=== PATIENT | male | born 1940 | race Caucasian/White ===

== ENCOUNTER 2020-08-15 17:40 | Emergency (ER) | payer OTHER ==
--- OUTSIDE RECORDS SUMMARY | 2020-08-15 17:55 | XMS REPORT | Continuity of Care Document ---
:1940 Author Organization [facility] t Address [address] [place] [address] Dr. Montes De Oca [address] [place] [address] Care Team Providers Name Role Phone CECILE Primary Care Physician Unavailable Whitney AHN Attending Clinician Unavailable Mitzi DEL TORO Attending Clinician Cecile DEL TORO Attending Clinician CECILE Attending Clinician Unavailable Kae HENRY Attending Clinician Unavailable Francis DEL TORO, RJean Attending Clinician Jimy VEGA E Attending Clinician Unavailable Payers Payer Name Policy Policy Number Effective Expiration Source Type Date Date MEDICARE PART A AND B [id number] 2007 00:00:00 GENERIC [id number] 2018 00:00:00 MEDICAREMEDICARE PART [id number] 2007 Sunny Hinojosa AND 00:00:00 [facility] [id number] [place] [id number] 2017 [place] MANAGED 00:00:00 Gn[facility]ist [id number] Problems Condition Condition Condition Status Onset Resolution Last Treating Co mments Source Name Details Category Date Date Treatment Clinician Date Palpitatio Palpitatio Disease Active 2019-02 H puneet bagley n 2-29 Methodi 00:00: st 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 9: EK, SR 019: CT CHEST: IMPRESSIO N:1. Bladder wall thickenin g compatibl e with the known primary tumor with some perivesic al fat stranding that may represent tumor infiltrat ion.2. Scattered subcentim eter pulmonary nodules that are indetermi lisa and of uncertain clinical significa nce. Current Current Disease Active Overview: MD use of use of 10-02 Formattin Anderso antiplatel antiplatel 00:00: g of this n et et 00 note might be different from the original. On Plavix and aspirinLa st Assessmen t & Plan: Formattin g of this note might be different from the original. See above Type 2 Type 2 Disease Active Overview: diabetes diabetes 10-02 Formattin And erso mellitus mellitus 00:00: g of this n well well 00 note is controlled controlled different from the original. Lab Results Component Value Date POCA1C 6.7 (H) 9 Last Assessmen t & Plan: Formattin g of this note might be different from the original. Continue current diabetic medicatio nsDo not take any oral diabetic agents on the morning of surgery Swelling Swelling Disease Active Overview: MD of lower of lower 10-02 Formattin And erso leg leg 00:00: g of this n 00 note might be different from the original. Patient has denied any prior history of DVTBut somehow, patient's left leg is significa nt bigger than his right leg although his right leg is the dominant one.Last Assessmen t & Plan: Formattin g of this note might be different from the original. Left lower extremity Doppler study to rule out DVT today. Bladder Bladder Disease Active Overview: cancer cancer 8-16 Keltin Anderso 00:00: g of this n 00 note might be different from the original. Added automatic ally from request for surgery [id number] Mass of Mass of Disease Active Overview: urinary urinary 7-10 Keltin Adria so bladder bladder 00:00: g of this n 00 note might be different from the original. Added automatic ally from request for surgery [id number] CAD in CAD in Disease Active [place] knik knik 03-13 Methodi artery artery 00:00: st 00 Hypertensi Hypertensi Disease Active Overview : on on 02-11 Jackson Henry 00:00: g of this n 00 note is different from the original. Controled by medicatio nBP Readings from Last 3 Encounter s: 10/02/18 145/82 08/22/18 (!) 175/86 08/21/18 116/65 Last Assessmen t & Plan: Formattin g of this note might be different from the original. 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 After TURP Hyperlipid Hyperlipid Disease Active Overview : emia emia 02-11 Jackson Anderso 00:00: g of this n 00 note might be different from the original. 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 Due to service. 90%?disab led Stented Stented Disease Active Overview: coronary coronary Jackson And maddisono artery artery g of this n note might be different from the original. Had total 5 stent employed in 2011 - 3 LAD AND 2 RCALast cardiac stress test one week ago, negative for stress-in duced ischemiaC leared by local cardiolog ist for surgeryLa st Assessmen t & Plan: Formattin g of this note might be different from the original. Hold Plavix 1 week prior to surgeryCo ntinue aspirin 81 mg daily through surgeryCo ntinue atorvasta tin 40 mg nightly through surgery Allergies, Adverse Reactions, Alerts Allergy Allergy Status Severity Reaction(s) Onset Inactive Treating Comm ents Source Name Type Date Date Clinician Cruz Burdick Active [place] ty to 08-21 Methodi adverse 00:00: st reaction 00 s to drug Family History Family Member Diagnosis Comments Start Date Stop Date Source Natural brother -Thoracic or Lung MD Knott Natural father -Genitourinary (Bladder, MD Knott Kidney, Prostate, Testicle) Natural mother -Leukemia MD Carl bagley Natural sister -Pancreatic cancer MD Knott Social History Social Habit Start Date Stop Date Quantity Comments Source Cigarettes smoked 2020-04-13 2020-04-13 MD Michele sánchez current (pack per 00:00:00 00:00:00 day) - Reported Tobacco use and 2020-04-13 2020-04-13 Never used MD Tsang on exposure 00:00:00 00:00:00 Alcohol intake 2020-04-13 2020-04-13 Ex-drinker MD Carl bagley 00:00:00 00:00:00 (finding) Alcohol Comment 2018-08-22 2018-08-22 last month last MD Ashish nash 00:00:00 00:00:00 History of tobacco 1957 1968 Current smoker MD Knott use 00:00:00 00:00:00 Sex [birth year] MD Tsang on 00:00:00 00:00:00 Smoking Status Start Date Stop Date Source Former smoker 2020-04-13 00:00:00 2020-04-13 00:00:00 MD [place] son Never smoker [place] Methodis t Medications Ordered Filled Start Stop Current Ordering Indication Dosage Frequency Signature Comments Components Source Medication Medication Date Date Medication? Clinician (SIG) Name Name alogliptin Yes 6.25mg QD Take 6.25 [place] 6.25 mg 1-05 mg by Methodi tablet 14:52: mouth st 35 daily. isosorbide Yes 30mg QD Take 30 mg [place] mononitrate 1-05 by mouth Meth bebe (IMDUR) 30 14:51: daily. st MG 24 hr 54 tablet metoprolol Yes 50mg Q.5D Take 1 [place] tartrate 1-05 tablet (50 Metho di (LOPRESSOR) 00:00: mg total) s t 50 mg 00 by mouth 2 tablet (two) times a day. metoprolol 2019-02 No 50mg Q.5D Take 50 mg [place] tartrate 2-29 12-29 by mouth 2 Meth bebe (LOPRESSOR) 10:48: 00:00 (two) st 50 mg 22 :00 times a tablet day. losartan 2019-02 No 100mg QD Take 100 [place] (COZAAR) 2-29 12-29 mg by Methodi 100 MG 10:47: 00:[address] tablet 50 :00 daily. Take 1/2 tablet by mouth daily aspirin 2019-02 Yes 81mg QD Take 81 mg [place] (ECOTRIN) 2-29 by mouth Method i 81 MG 09:57: daily. st enteric 57 coated tablet atorvastati 2019-02 Yes 40mg QD Take 40 mg [place] n (LIPITOR) 2-29 by mouth Meth bebe 40 MG 09:57: daily. st tablet 57 clopidogrel 2019-02 Yes 75mg QD Take 75 mg [place] (PLAVIX) 75 2-29 by mouth Meth bebe mg tablet 09:57: daily. st 57 finasteride 2019-02 Yes 5mg QD Take 5 mg [place] (PROSCAR) 5 -29 by mouth Meth bebe mg tablet 09:57: daily. st 57 gabapentin 2019-02 Yes 300mg Q.[id number] Take 300 [place] (NEURONTIN) 2-29 [id number] mg by M ethodi 300 mg 09:57: 3D mouth 3 st capsule 57 (three) times a day. glipiZIDE 2019-02 Yes 10mg Q.5D Take 10 mg [place] (GLUCOTROL) 2-29 by mouth 2 Me thodi 10 MG 09:57: (two) st tablet 57 times a day before meals. metFORMIN 2019-02 Yes 1000mg Q.5D Take 1,000 [place] (GLUCOPHAGE 2-29 mg by Methodi ) 1,000 mg 09:57: mouth 2 st tablet 57 (two) times a day with meals. nitroglycer 2019-[address] 0.4 [place] in 2-29 mg under Methodi (NITROSTAT) 09:57: the tongue st 0.4 MG SL 57 every 5 tablet (five) minutes as needed for chest pain. sitaGLIPtin 2019-02 Yes 100mg QD Take 100 [place] (JANUVIA) 2-29 mg by Methodi 100 MG 09:57: mouth st tablet 57 daily. metoprolol 2019-02 100mg Q.5D Take 1 [place] tartrate 2-29 01-05 tablet Methodi (LOPRESSOR) 00:00: 00:00 ([address] 100 mg 00 :00 total) by tablet mouth 2 (two) times a day. metFORMIN 2020-0 Yes 1000mg Take 1,000 MD (GLUCOPHAGE 9-03 mg by Anderso ) 1000 mg 14:32: mouth n tablet 45 twice daily. gabapentin 2020-0 Yes 300mg Take 300 MD (NEURONTIN) 5-07 mg by Anderso 300 mg 17:16: mouth at n capsule 46 bedtime. glipiZIDE 2020-0 Yes 10mg Take 10 mg MD (GLUCOTROL) 5-07 by mouth Michele rso 10 mg 17:16: twice n tablet 46 daily. atorvastati 2020-0 Yes 40mg Take 40 mg MD n (LIPITOR) 5-07 by mouth Michele rso 40 mg 17:16: at n tablet 46 bedtime. aspirin 81 2020-0 Yes 81mg Take 81 mg M D mg EC 5-07 by mouth Anderso tablet 17:16: daily. n 46 metoprolol 2020-0 Yes 25mg Take 25 mg M D tartrate 5-07 by mouth Anderso (LOPRESSOR) 17:16: twice n 50 mg 46 daily. tablet nitroglycer 2020-[address] 0.4 M D in 5-07 mg under Anderso (NITROSTAT) 17:16: the tongue n 0.[address] 46 as needed. tablet losartan 2020-0 Yes 25mg Take 25 mg MD (COZAAR) 5-07 by mouth. Sharan o 100 mg 17:16: n tablet 46 alogliptin 2020-0 Yes 1{tbl} Take 1 MD 12.5 mg tab 5-07 tablet by And erso 17:16: mouth n 46 daily. isosorbide 2020-0 Yes 30mg Take 30 mg M D mononitrate 5-07 by mouth Michele rso (IMDUR) 30 17:16: daily. n mg 24 hr 46 tablet multivitami 2020-0 Yes 1{tbl} Take 1 MD n 5-07 tablet by Anderso (multivitam 17:16: mouth n in) tablet 46 daily. 2020-0 Yes 1{tbl} Take 1 MD no122/iron/ 5-07 tablet by And erso folic acid 17:16: mouth n ( 46 daily. MULTI ORAL) fish Yes 2g Take 2 g MD oil-omega-3 5-07 by mouth Michele rso fatty acids 17:16: daily. n 300-1,000 46 mg capsule multivitami 0 Yes 1{tbl} Take 1 MD n 5-07 tablet by Anderso (THERAGRAN) 17:16: mouth n tablet 46 daily. clopidogrel Yes Recovery 75mg Take 1 MD (PLAVIX) 75 9-13 following tablet (75 Anderso mg tablet 00:00: surgery mg) by n 00 mouth daily. polyethylen Yes Recovery 17g Pour 17 MD e glycol 8-30 following gram Sharan o (GLYCOLAX) 00:00: surgery (about 1 n 17 00 heaping gram/dose tablespoon powder ) of powder up to the indicated james on the cap of bottle. Dissolve and stir in any 4 to 8 ounces of beverage and drink as instructed by mouth daily. docusate Yes Bladder 100mg Take 1 MD sodium 8-29 cancer capsule Anderso (COLACE) 00:00: (100 mg) n 100 mg 00 by mouth capsule twice daily. Vital Signs Vital Name Observation Time Observation Value Comments Source Systolic blood 2020-04-13 21:13:24 175 mm[Hg] pressure Diastolic blood 2020-04-13 21:13:24 82 mm[Hg] MD Kelsie moellerson pressure Heart rate 2020-04-13 21:13:24 58 /min MD [place] son Respiratory rate 2020-04-13 21:13:24 20 /min MD Ashish nash Oxygen saturation in 2020-04-13 21:13:24 100 /min MD Knott Arterial blood by Pulse oximetry Systolic blood 2020-02-09 09:57:00 132 mm[Hg] Vern bagley Gnosticist pressure Diastolic blood 2020-02-09 09:57:00 60 mm[Hg] Adriana gracia [facility] pressure Heart rate 2020-02-09 09:57:00 67 /min Prashant Jc Body height 2020-02-09 09:57:00 180.3 cm Prashant Jc Body weight 2020-02-09 09:57:00 90.266 kg Prashant Jc BMI 2020-02-09 09:57:00 27.75 kg/m2 [facility] Procedures Procedure Date / Time Performed Performing Clinician [facility] CHEST ABDOMEN PELVIS W WO 2020-04-13 21:03:12 Bay Huber MD CONTRAST UROGRAM COMPLETE BLOOD COUNT W/ 2020-04-13 17:21:00 Bay Huber MD COMPREHENSIVE METABOLIC PANEL 2020-04-13 17:21:00 Bay Huber MD PROSTATE SPECIFIC ANTIGEN 2020-04-13 17:21:00 Bay Huber MD GLUCOSE LEVEL 2020-04-13 17:21:00 Bay Huber MD BLOOD UREA NITROGEN 2020-04-13 17:21:00 Bay Huber MD Adria son ELECTROLYTE PANEL 2020-04-13 17:21:00 Bay Huber MD SERUM CREATININE 2020-04-13 17:21:00 Bay Huber MD .GLOMERULAR FILTRATION RATE 2020-04-13 17:21:00 Bay Huber MD CALCIUM LEVEL TOTAL 2020-04-13 17:21:00 Bay Huber MD Adria son ALBUMIN LEVEL 2020-04-13 17:21:00 Bay Huber MD ALKALINE PHOSPHATASE 2020-04-13 17:21:00 Bay Huber MD rson ALANINE AMINOTRANSFERASE 2020-04-13 17:21:00 Bya Huber MD ASPARTATE AMINOTRANSFERASE 2020-04-13 17:21:00 Bay Huber TOTAL PROTEIN 2020-04-13 17:21:00 Bay Huber MD FRACTIONATED BILIRUBIN 2020-04-13 17:21:[address] CHEST ABDOMEN PELVIS W WO 2019-10-15 16:37:00 Bay Huber MD CONTRAST UROGRAM POC CREATININE 2019-10-15 14:40:00 Bay Huber MD ALBUMIN LEVEL 2019-10-15 14:02:00 Bay Huber MD ALKALINE PHOSPHATASE 2019-10-15 14:02:00 Bay Huber MD rson ALANINE AMINOTRANSFERASE 2019-10-15 14:02:00 Bay Huber MD ASPARTATE AMINOTRANSFERASE 2019-10-15 14:02:00 Bay Huber TOTAL PROTEIN 2019-10-15 14:02:00 Bay Huber MD FRACTIONATED BILIRUBIN 2019-10-15 14:02:00 Bay Huber MD derson VITAMIN B12 LEVEL 2019-10-15 14:02:00 Bay Huber MD COMPLETE BLOOD COUNT W/ 2019-10-15 14:02:00 Bay Huber MD nderson DIFFERENTIAL COMPREHENSIVE METABOLIC PANEL 2019-10-15 14:02:00 Bay Huber MD Results CBC 2019-10-15 14:02:00 Bay Huber MD MANUAL DIFFERENTIAL 2019-10-15 14:02:00 Bay Hub[facility] GLUCOSE LEVEL 2019-10-15 14:02:00 Bay Huber MD BLOOD UREA NITROGEN 2019-10-15 14:02:00 Bay Huber MD [facility] ELECTROLYTE PANEL 2019-10-15 14:02:00 Bay Huber MD SERUM CREATININE 2019-10-15 14:02:00 Bay Huber MD .GLOMERULAR FILTRATION RATE 2019-10-15 14:02:00 Bay Huber MD CALCIUM LEVEL TOTAL 2019-10-15 14:02:00 Bay Huber MD [facility] Plan of Care Planned Activity Planned Date Details Comments Source Future Scheduled 2020-09-11 INFLUENZA VACCINE [place] [facility] Test 00:00:00 [code = INFLUENZA VACCINE] Future Scheduled 1992 SHINGLES VACCINES (#1) [place] [facility] Test 00:00:00 [code = SHINGLES VACCINES (#1)] Future Scheduled 1960 Hepatitis C screening [place] [facility] Test 00:00:00 (procedure) [code = 402618053] Future Scheduled 1954 COVID-19 VACCINE (1) [place] [facility] Test 00:00:00 [code = COVID-19 VACCINE (1)] Future Scheduled 1952 DIABETES: RETINAL EYE [place] [facility] Test 00:00:00 EXAM [code = DIABETES: RETINAL EYE EXAM] Future Scheduled 1952 DIABETIC FOOT EXAM [place] [facility] Test 00:00:00 [code = DIABETIC FOOT EXAM] Future Scheduled 1950 URINE MICROALBUMIN [place] [facility] Test 00:00:00 [code = URINE MICROALBUMIN] Future Scheduled 1948 65+ PNEUMOCOCCAL [place] [facility] Test 00:00:00 VACCINE (1 of 2 - PPSV23) [code = 65+ PNEUMOCOCCAL VACCINE (1 of 2 - PPSV23)] Encounters Start End Encounter Admission Attending Care Care Encounter Source Date/Time Date/Time Type Type Clinicians Facility Department ID 2019-09-24 Outpatient JIMY KRISTIAN TOWNSEND [id number] 10:06:19 JEREMY Johnserso n 2020-04-14 2020-04-14 Outpatient ROMI HUBER KRISTIAN MDA [id number] 15:57:52 17:04:36 BAY Sharan o n 2020-04-13 2020-04-13 Outpatient ROMI HUBER KRISTIAN MDA [id number] 11:00:00 23:59:00 BAY Sharan o n 2020-04-13 2020-04-13 Outpatient OTF KRISTIAN MDA [id number] 11:29:48 11:29:48 BAY Sharan o n 2020-02-09 2020-02-09 Outpatient [facility] [id number] [address] [place] [address] 00:00:00 00:00:00 KRIS [address] 2019-10-15 2019-10-15 Outpatient [facility] KRISTIAN MDA [id number] 08:20:45 23:59:00 BAY Sharan o n 2019-10-15 2019-10-15 Outpatient [facility] KRISTIAN MDA [id number] MD 16:00:39 16:00:39 BAY Sharan o n 2019-10-15 2019-10-15 Outpatient [facility] KRISTIAN MDA [id number] 09:12:04 09:12:04 BAY Sharan o n 2019-10-15 2019-10-15 Outpatient [facility] KRISTIAN MDA [id number] MD 00:00:00 00:00:00 BAY Sharan o n 2019-06-18 2019-06-18 Outpatient [facility] KRISTIAN MDA [id number] MD 06:40:47 06:40:47 BAY Sharan o n Results Test Description Test Time Test Comments Results Result [facility] e Comments CT Chest Abdomen 1. No evidence of MD Knott Pelvis with and 3 recurrent or without Contrast 22:05:01 metastatic disease in Urogram the chest, abdomen or pelvis. Tiny pulmonary nodules are present which are amenable to follow-up.Interface, Radiology Results In - 04/13/2020 4:07 PM CST FULL RESULT:EXAMINATION: CT CHEST ABDOMEN PELVIS W WO CONTRAST UROGRAM, 04/13/2020 3:03 PMCLINICAL HISTORY: Bladder cancerINDICATION: History of bladder cancerCOMPARISON: 10/15/2019TECHNIQUE: Axial images were performed both pre and post intravenous contrast through the abdomen and pelvis and post intravenous contrast through the thorax. No oral contrast was administered. Coronal and sagittal reconstructions were performed. FINDINGS: CHEST: No axillary or supraclavicular lymphadenopathy is seen. The mediastinum demonstrates sclerosis but no suspicious masses or adenopathy. There are no pleural effusions.The tracheobronchial tree is clear with no endobronchial lesions. The pulmonary parenchyma demonstrates a 3 mm nodule in the right upper lobe on series 306, image 51 that is likely within a bronchiole and represents some mucus.A stable 5 mm nodule is seen in the lingula on image 69. There is a 4 mm nodule in the right middle lobe abutting the oblique and minor fissures on image 70, slightly more pronounced than on previous. A stable 5 mm nodule is seen in the left lower lobe on image 91. Other scattered punctate nodules are seen. Areas of atelectasis or fibrosis are noted. ABDOMEN/PELVIS:The liver is unremarkable. The portal vein is patent. The gallbladder and biliary tree are within normal limits.The spleen, pancreas, and adrenal glands are unremarkable.A stable 2.5 cm cyst is seen in the right kidney. No suspicious renal masses are noted. There is no hydronephrosis, hydroureter or ureteric filling defect identified. An ileal conduit is present and appears unremarkable.Postsurg ical changes are seen related to hysterectomy and cystectomy. No evidence of local recurrence is seen.No dilated loops of large or small bowel are seen to suggest obstruction. Diverticulosis is seen without evidence of diverticulitis. The aorta is normal in caliber. Atherosclerosis is seen. No suspicious abdominal or pelvic lymphadenopathy is noted.Bone windows demonstrate degenerative changes.IMPRESSION:1. No evidence of recurrent or metastatic disease in the chest, abdomen or pelvis. Tiny pulmonary nodules are present which are amenable to follow-up. PSA 2020-04-13 18:09:50 Test Item Value Reference Range Interpretation Comme nts PSA (test code = 6743) <0.1 0.0-4.0 Resul ts greater than 4519 ng/mL may not be reli able due to matrix effect with ext ended dilution as it exceeds the metal fitter's recommended mullins it. Caution should be exercised wh en interpreting such values and done in conjunction wit h clinical context.Testing Performed at [facility] Lab Sports Management Internship [facility], [address] [place] [address], [address], [place] [address] PSA Indication (test code = Diagnostic 9395) MD KnottFractionated [id number] 17:59:34 Test Item Value Reference Range Interpretation Comments Bili Total (test 0.6 mg/dL See_Comment Indocyanine Green (ICG) code = 5096) may cause false ly elevated biliru bin results. Total and direct bilirubin must not be measured from s amples containing indo cyanine green. False el evation of total bilirubin can be seen in patient s with IgG concentrations above 28 g/L.Testing Per formed at [facility] Lab Ambulat ory [facility], [address] [place] [address], [address], [place] [address] [Automat ed message] The sy stem which generated this result transmitted ref erence range: <=1.2. T he reference range was not used to interpr et this result as normal/abnormal . Bili Direct (test 0.2 mg/dL See_Comment Indocyanin e Green (ICG) code = 5094) may cause false ly elevated biliru bin results. Total and direct bilirubin must not be measured from s amples containing indo cyanine green. Testing Performed at [facility] Lab Ambu latory [facility], [address] [place] [address], [address], [place] [address] [Auto mated message] The sy stem which generated this result transmitted ref erence range: <=0.3. T he reference range was not used to interpr et this result as normal/abnormal . Bili Indirect (test 0.4 mg/dL 0.0-0.9 Testing Performed at [facility] code = 5095) Lab [facility], [address] [place] [address] [address]vd, [address], [place] [address] MD KnottGlomerular Filtration [id number] 17:59:33 Test Item Value Reference Range Interpretation Comments eGFR-AA (test code 76 See_Comment Normal eG FR >= 60 mL/min/1.73 = 8062) m2 Note: The eG FR is calculated usin g the CKD-EPI equation. The e GFR declines with age. eGFR <60 mL/min/1.73 m2 is considered as "decreased". This equation should only be used for patients 18 and older. According to th e National Kidney Foundati on's Kidney Disease Outcome Quality Initiative (KDO QI) classification and 2012 Kidney Disease Improving Global Outcomes (KDIGO) Clinical Practi ce Guideline, the stage of CK D should be categorized bas ed on estimated GFR. Stage Description GFR mL/min/1.73 m21 Normal or high GFR >=902 Mildly decrease d GFR 60-893a M ildly to moderately decr eased GFR 45-593b Moderat grayson to severely decrea sed GFR 30-444 Severely decreased GFR 15-295 Kid kristopher failure <15 Testing Performed at [facility], [address], [address], [place], [place] [address] [Automated message] The Jiberish stem which generated this result transmitted ref erence range: >=60 mL/min/1.7 3 sq. m. The reference range was not used to interpret is result as normal/abnormal . eGFR-PURVI (test code 66 See_Comment Normal e GFR >= 60 mL/min/1.73 = 8063) m2 Note: The eG FR is calculated usin g the CKD-EPI equation. The e GFR declines with age. eGFR <60 mL/min/1.73 m2 is considered as "decreased". This equation should only be used for patients 18 and older. According to th e National Kidney Foundati on's Kidney Disease Outcome Quality Initiative (KDO QI) classification and 2012 Kidney Disease Improving Global Outcomes (KDIGO) Clinical Practi ce Guideline, the stage of CK D should be categorized bas ed on estimated GFR. Stage Description GFR mL/min/1.73 m21 Normal or high GFR >=902 Mildly decrease d GFR 60-893a M ildly to moderately decr eased GFR 45-593b Moderat grayson to severely decrea sed GFR 30-444 Severely decreased GFR 15-295 Kid kristopher failure <15 Testing Performed at [facility], [address], [place], [place] [address] [Automated message] The sy stem which generated this result transmitted ref erence range: >=60 mL/min/1.7 3 sq. m. The reference range was not used to interpret th is result as normal/abnormal . MD KnottTotal [id number] 17:59:32 Test Item Value Reference Range Interpretation Comments Total Protein (test 7.9 g/dL 6.4-8.3 Testing Performed at [facility] code = 7649) Lab [facility]ship [facility], [address], [address], [place] [address] MD KnottCalcium [id number] 17:59:31 Test Item Value Reference Range Interpretation Comments Calcium Lvl (test 10.0 mg/dL 8.4-10.2 Testing Pe rformed at code = 5258) [facility] Lab Ambulat [facility], [address], [address], [place] [address] MD KnottAlkaline [id number] 17:59:30 Test Item Value Reference Range Interpretation Comments Alk Phos (test code = 77 U/L 40-129 Testin g Performed at [facility] 4761) Lab [facility], [address], [address], [place] [address] MD KnottAlbumin [id number] 17:59:29 Test Item Value Reference Range Interpretation Comments Albumin Lvl (test code 4.8 See_Comment Testi ng Performed at [facility] = 4405) [facility], [address], [address], [place] [address] [Automated mess age] The system which ge nerated this result tra nsmitted reference range : 3.5 - 5.2 gm/dL. The refe rence range was not used to interpret this result as normal/abnormal . MD KnottAspartate [id number] 17:59:28 Test Item Value Reference Range Interpretation Comments AST (test code = 33 U/L See_Comment Testing Per formed at [facility] 473) Lab [facility], [address], [address], [place] [address] [Automated mess age] The system which ge nerated this result transmit lai reference range : <=40. The reference range was not used to interpr et this result as devonte l/abnormal. MD [id number] 17:59:27 Test Item Value Reference Range Interpretation Comments ALT (test code = 35 U/L See_Comment Testing Per formed at [facility] 4702) Lab [facility], [address], [address], [place] [address] [Automated mess age] The system which ge nerated this result transmit lai reference range : <=41. The reference range was not used to interpr et this result as devonte l/abnormal. MD KnottElectrolyte [id number] 17:59:26 Test Item Value Reference Range Interpretation Comments Sodium Lvl (test code = 139 See_Comment Test ing Performed at [facility] 7389) Lab [facility], [address], [address], [place] [address] [Automated mess age] The system which ge nerated this result tra nsmitted reference range : 136 - 145 mEq/L. The reference range was not u sed to interpret this result as normal/abnormal . Potassium Lvl (test 4.5 See_Comment Testing Performed at [facility] code = 6854) Lab [facility], [address], [address], [place] [address] [Automated mess age] The system which ge nerated this result tra nsmitted reference range : 3.5 - 5.1 mEq/L. The reference range was not u sed to interpret this result as normal/abnormal . Chloride (test code = 102 See_Comment Testin g Performed at [facility] 7938) Lab [facility], [address], [place] [address] [Automated mess age] The system which ge nerated this result tra nsmitted reference range : 98 - 107 mEq/L. The refe rence range was not u sed to interpret this result as normal/abnormal . CO2 (test code = 5227) 25 See_Comment Testi ng Performed at [facility] Lab [facility], [address], [address], [place] [address] [Automated mess age] The system which ge nerated this result tra nsmitted reference range : 22 - 29 mEq/L. The refe rence range was not u sed to interpret this result as normal/abnormal . Anion Gap (test code = 12 See_Comment Testi ng Performed at [facility] 9325) [facility], [address] [place], [place] [address], [address], [place] [address] [Automated mess age] The system which ge nerated this result tra nsmitted reference range : 4 - 14 mEq/L. The refe rence range was not u sed to interpret this result as normal/abnormal . MD Knott.Serum [id number] 17:59:25 Test Item Value Reference Range Interpretation Comments Creatinine (test code 1.08 mg/dL 0.67-1.17 Testin g Performed at = 5399) [facility] Lab Ambulat ory [facility], [address], [address], [place] [address] MD [id number] 17:59:24 Test Item Value Reference Range Interpretation Comments BUN (test code = 15 mg/dL 6-23 Testing Per formed at [facility] 5055) Lab [facility], [address] [facility], [address], [place] [address] MD KnottGlucose [id number] 17:59:23 Test Item Value Reference Range Interpretation Comments Glucose Level (test code 139 mg/dL 70-99 H Eff ective 09/07/15, = 5699) the glucose reference inter vals have been updat ed based on [place] Diabetes Associ ation guidelines (Standards of Medical Care in Diabetes 2016. Diabetes Care 2 016; 39: S13-S22).Fa sting blood glucose:Normal: 70 99 mg/dLImpaire d fasting glucose (increased risk for diabetes or pre-diabetes): 100 125 mg/dLDiabet es mellitus: >/=1 26 mg/dL Random bl ood glucose:Normal: 70 199 mg/dLNote: Random glucose >100 mg/dL is associ ated with increased risk for diabetes Te sting Performed at [facility] Lab [facility], [address], [place], [place] [address] Lab Interpretation (test Abnormal code = 22555-8) MD KnottCompletwhitney Blood Count w/o [id number] 17:49:20 Test Item Value Reference Range Interpretation Comments WBC (test code = 8034) 9.0 K/uL 4.0-11.0 RBC (test code = 6932) 4.72 See_Comment [Aut omated message] The system [employer] generated this result transmitted ref erence range: 4.50 - 6 .00 M/uL. The refer ence range was not u sed to interpret this result as normal/abnor mal. Hgb (test code = 5898) 15.0 See_Comment As pa rt of CBC or as an individual orderable testi ng performed at [facility], [address], [address], [place] [address] [Automate d message] The sy stem which generated this result transmit lai reference range : 14.0 - 18.0 gm/dL. T he reference range was not used to int erpret this result as normal/abnormal . Hct (test code = 5860) 44.0 % 40.0-54.0 As pa rt of CBC or as an individual orderable testi ng performed at [facility], [address], [place] [address] MCV (test code = 6222) 93 fL 82-98 MCH (test code = 6220) 31.8 pg 27.0-31.0 H MCHC (test code = 6221) 34.1 See_Comment [Au tomated message] The system [employer] generated this result transmitted ref erence range: 31.0 - 3 6.0 gm/dL. The refe rence range was not u sed to interpret this result as normal/abnor mal. RDW-SD (test code = 42.8 fL 35.1-46.3 6972) RDW-CV (test code = 12.4 % 12.0-15.5 6971) Platelet count (test 201 K/uL 140-440 As part of CBC or as code = 6832) an individual orderable testi ng performed at [facility], [address], [address], [place] [address] MPV (test code = 6282) 10.5 fL 4.0-10.4 H INRBC (test code = 0.0 % See_Comment The INRBC (instrument 5974) NRBC) value ref lects the enumeration of nucleated red b lood cells contained in a 200uL sampleof whole blood analyzed by the instrument. Thi s value maydiffer from the NRBC value repo rted in a manual differential,wh ich is based on a 100 cell differential. A s part of CBC testing performed at [facility] [id number], [place] [address] [Automated mess age] The system whic h generated this result transmitted ref erence range: <=0.0. T he reference range was not used to int erpret this result as normal/abnormal . Lab Interpretation Abnormal (test code = 57403-1) MD KnottVitamin B12 [id number] 16:39:57 Test Item Value Reference Range Interpretation Comments Vitamin B12 Lvl (test code = 8017) 416 pg/mL 211-946 [facility] [id number] 14:50:33 Test Item Value Reference Range Interpretation Comments POC Crea (test 1.0 mg/dL 0.6-1.3 Medications, especially code = 46590-9) hydroxyurea or supplements, such as ascorba te, can interfere with test results causing a false ly and significantlyhi gher result than expected. If a problem is suspected wi th a patient's result, a sampl e should be sent to the lab oratory for confirmatory te sting. POC eGFR-AA 84 See_Comment Normal eGFR >= 60 mL/min/1.73 (test code = m2 [place] eGFR [place] calculated 95952-0) using the CKD-E PI equation. The eGFR declin es with age. eGFR <60 mL/min /1.73 m2 is considered as " decreased" This equation s hould only be used for patien ts 18 and older. Thaisin g to the National Kidney Foundation's Kidney Disease Outcome Quality Initiat ramos (KDOQI) classification and 2012 Kidney Disease Improving Global Outcomes (KDIGO) Clinical Practi ce Guideline, the stage of CK D should be categorized bas ed on estimated GFR. Stage Description GFR mL/min/1.73 m21 Kidney zenia ge with normal or high GFR >=902 Kidney damage with mil d decrease in GFR 60-893a Mild to moderate decrea se in GFR 45-593b Moderat e to severe decrease in GFR 30-444 Severe decrease in GFR 15-295 Kidney f ailure <15 (or dialysis) [Automated message] The sy stem which generated this result transmitted ref erence range: >=60 mL/min/1.7 3 m2. The reference range was not used to interpret th is result as normal/abnormal . POC eGFR-PURVI 72 See_Comment Normal eGFR >= 60 mL/min/1.73 (test code = m2 The eGFR is calculated 92744-5) using the CKD-E PI equation. The eGFR declin es with age. eGFR <60 mL/min /1.73 m2 is considered as " decreased" This equation s hould only be used for patien ts 18 and older. Accordin g to the National Kidney Foundation's Kidney Disease Outcome Quality Initiat ramos (KDOQI) classification and 2012 Kidney Disease Improving Global Outcomes (KDIGO) Clinical Practi ce Guideline, the stage of CK D should be categorized bas ed on estimated GFR. Stage Description GFR mL/min/1.73 m21 Kidney zenia ge with normal or high GFR >=902 Kidney damage with mil d decrease in GFR 60-893a Mild to moderate decrea se in GFR 45-593b Moderat e to severe decrease in GFR 30-444 Severe decrease in GFR 15-295 Kidney f ailure <15 (or dialysis) [Automated message] The sy stem which generated this result transmitted ref erence range: >=60 mL/min/1.7 3 m2. The reference range was not used to interpret th is result as normal/abnormal . POC Clean Dev Yes (test code = 6672) MD KnottAkylwawnTbzsjuztihfq9555-82-92 14:25:30 Test Item Value Reference Range Interpretation Comments Neutrophil % (test code 70.1 % 42.0-66.0 H As p art of = 6491) Differential performed at [facility], [address], [place] [address] Lymphocyte % (test code 11.9 % 24.0-44.0 L = 6194) Monocyte % (test code = 13.7 % 2.0-7.0 H 6422) Eosinophil % (test code 3.3 % 1.0-4.0 = 5520) Basophil % (test code = 0.6 % 0.0-1.0 5068) IGRE % (test code = 0.4 % 0.0-0.4 IGRE % c ount includes 5958) Metamyelocytes, Myelocytes, and Promyelocytes. As part of Differe ntial performed at [facility], [address], [place] [address] Neutrophil Abs (test 6.00 K/uL 1.70-7.30 code = 6492) Lymphocyte Abs (test 1.02 K/uL 1.00-4.80 code = 6195) Monocyte Abs (test code 1.17 K/uL 0.08-0.70 H = 6423) Eosinophil Abs (test 0.28 K/uL 0.04-0.40 code = 5521) Basophil Abs (test code 0.05 K/uL 0.00-0.10 = 5069) IG Abs (test code = 0.03 K/uL 0.00-0.04 5954) Lab Interpretation Abnormal (test code = 90957-9) MD Knott.LNK4648-02-29 14:25:25 Test Item Value Reference Range Interpretation Comments WBC (test code = 8034) 8.6 K/uL 4.0-11.0 RBC (test code = 6932) 4.48 See_Comment L [Aut omated message] The system [employer] generated this result transmitted ref erence range: 4.50 - 6 .00 M/uL. The refer ence range was not u sed to interpret this result as normal/abnor mal. Hgb (test code = 5898) 13.9 See_Comment L As pa rt of CBC or as an individual orderable testi ng performed at [facility], [address], [place] [address] [Automate d message] The sy stem which generated this result transmit lai reference range : 14.0 - 18.0 gm/dL. T he reference range was not used to int erpret this result as normal/abnormal . Hct (test code = 5860) 42.1 % 40.0-54.0 As pa rt of CBC or as an individual orderable testi ng performed at [facility], [address], [place] [address] MCV (test code = 6222) 94 fL 82-98 MCH (test code = 6220) 31.0 pg 27.0-31.0 MCHC (test code = 6221) 33.0 See_Comment [Au tomated message] The system [employer] generated this result transmitted ref erence range: 31.0 - 3 6.0 gm/dL. The refe rence range was not u sed to interpret this result as normal/abnor mal. RDW-SD (test code = 42.0 fL 35.1-46.3 6972) RDW-CV (test code = 12.2 % 12.0-15.5 6971) Platelet count (test 198 K/uL 140-440 As part of CBC or as code = 6832) an individual orderable testi ng performed at [facility], [address], [place] [address] MPV (test code = 6282) 10.4 fL 4.0-10.4 INRBC (test code = 0.0 % See_Comment The INRBC (instrument 5974) NRBC) value ref lects the enumeration of nucleated red b lood cells contained in a 200uL sampleof whole blood analyzed by the instrument. Thi s value maydiffer from the NRBC value repo rted in a manual differential,wh ich is based on a 100 cell differential. A s part of CBC testing performed at [facility] [id number], [place] [address] [Automated mess age] The system [employer] generated this result transmitted ref erence range: <=0.0. T he reference range was not used to int erpret this result as normal/abnormal . Lab Interpretation Abnormal (test code = 55802-1) MD Knott
[2020-08-15 18:41] LABS: Absolute Lymphocytes (CBC) 0.4 K/uL (0.7-4.9); Basophils % 0.4 % (0-1.3); Hematocrit 40.3 % (39.6-49.0); Lymphocytes % 2.1 % (15.3-44.8); RBC Red Blood Cell Count 4.45 M/uL (4.33-5.43)
[2020-08-15 18:45] LABS: Protime INR 1.03
[2020-08-15 18:54] LABS: ALT/SGPT 32 U/L (12-78); AST/SGOT 24 U/L (15-37); Albumin 3.9 g/dL (3.4-5.0); Alkaline Phosphatase 90 U/L (45-117); Amylase 33 U/L (25-115); BUN Blood Urea Nitrogen 16 mg/dL (7-18); Bicarbonate 23 mmol/L (21-32); Bilirubin Direct 0.2 mg/dL (0-0.2); Bilirubin Total 0.9 mg/dL (0.2-1.0); CKMB Creatine Kinase MB 1.6 ng/mL (1.0-3.6); Creatine Phosphokinase 149 U/L (39-308); Glucose Level 169 mg/dL (74-106); Lipase 87 U/L (73-393); Magnesium 1.7 mg/dL (1.8-2.4); NT PRO-BNP 187 pg/mL (<450); Potassium 4.4 mmol/L (3.5-5.1); Protein, Total 7.7 g/dL (6.4-8.2); Sodium Level 137 mmol/L (136-145); Troponin (Emerg Dept Use Only) < 0.02 ng/mL (0.0-0.045)
--- NOTE | 2020-08-15 19:12 | EDPHYS ---
Physician Documentation [facility] Name: Akshat Acuna Age: 80 yrs Sex: Male : 1940 Arrival Date: 08/15/2020 Time: 17:49 Bed 14 Private MD: ED Physician Richardson Knott HPI: 08/15 18:10 This 80 yrs old Male presents to ER via EMS with complaints of General wayne Weakness, Fever. 18:10 The patient reports fever, that was measured at 103 degrees Fahrenheit. Onset: The wayne symptoms/episode began/occurred 3 day(s) ago. Modifying factors: there are no obvious modifying factors. Associated signs and symptoms: Pertinent positives: arthralgias, cough, myalgias, nausea, skin rash, sore throat. Severity of symptoms: At their worst the symptoms were moderate in the emergency department the symptoms are unchanged. Historical: - Allergies: 18:16 Codeine; bp - Home Meds: 18:16 aspirin 81 mg Oral chew 1 tab once daily [Active]; atorvastatin 40 mg oral tab 1 tab bp once daily [Active]; clopidogrel 75 mg oral tab 1 tab once daily [Active]; gabapentin 300 mg oral cap 1 cap 3 times per day [Active]; glipizide 10 mg Oral tab 1 tab 2 times per day [Active]; metformin 1,000 mg Oral tab 1 tab 2 times per day [Active]; metoprolol tartrate 50 mg Oral tab 1 tab 2 times per day [Active]; nitroglycerin 0.4 mg SL subl 1 tab every 5 minutes [Active]; alogliptin 6.25 mg oral tab 2 tab daily [Active]; isosorbide mononitrate 30 mg Oral Tb24 1 tab once daily [Active]; - PMHx: 18:16 Myocardial infarction; Diabetes mellitus; Hypertensive disorder; bp - Immunization history:: Adult Immunizations up to date. - Social history:: Smoking status: Patient denies any tobacco usage or history of. ROS: 18:12 Eyes: Negative for injury, pain, redness, and discharge, ENT: Negative for injury, wayne pain, and discharge, Neck: Negative for injury, pain, and swelling, Cardiovascular: Negative for chest pain, palpitations, and edema, Respiratory: Negative for shortness of breath, cough, wheezing, and pleuritic chest pain, Abdomen/GI: Negative for abdominal pain, nausea, vomiting, diarrhea, and constipation, Back: Negative for injury and pain, : Negative for injury, bleeding, discharge, and swelling, Neuro: Negative for headache, weakness, numbness, tingling, and seizure, Psych: Negative for depression, anxiety, suicide ideation, homicidal ideation, and hallucinations, Allergy/Immunology: Negative for hives, rash, and allergies, Endocrine: Negative for neck swelling, polydipsia, polyuria, polyphagia, and marked weight changes, Hematologic/Lymphatic: Negative for swollen nodes, abnormal bleeding, and unusual bruising. 18:12 MS/extremity: Positive for decreased range of motion, pain, swelling, tenderness, of the left foot. Exam: 18:12 Head/Face: Normocephalic, atraumatic. Eyes: Pupils equal round and reactive to light, wayne extra-ocular motions intact. Lids and lashes normal. Conjunctiva and sclera are non-icteric and not injected. Cornea within normal limits. Periorbital areas with no swelling, redness, or edema. ENT: Nares patent. No nasal discharge, no septal abnormalities noted. Tympanic membranes are normal and external auditory canals are clear. Oropharynx with no redness, swelling, or masses, exudates, or evidence of obstruction, uvula midline. Mucous membranes moist. Neck: Trachea midline, no thyromegaly or masses palpated, and no cervical lymphadenopathy. Supple, full range of motion without nuchal rigidity, or vertebral point tenderness. No Meningismus. Chest/axilla: Normal chest wall appearance and motion. Nontender with no deformity. No lesions are appreciated. Respiratory: Lungs have equal breath sounds bilaterally, clear to auscultation and percussion. No rales, rhonchi or wheezes noted. No increased work of breathing, no retractions or nasal flaring. Abdomen/GI: Soft, non-tender, with normal bowel sounds. No distension or tympany. No guarding or rebound. No evidence of tenderness throughout. Back: No spinal tenderness. No costovertebral tenderness. Full range of motion. Male : Normal genitalia with no discharge or lesions. Neuro: Awake and alert, GCS 15, oriented to person, place, time, and situation. Cranial nerves II-XII grossly intact. Motor strength 5/5 in all extremities. Sensory grossly intact. Cerebellar exam normal. Normal gait. Psych: Awake, alert, with orientation to person, place and time. Behavior, mood, and affect are within normal limits. 18:12 Cardiovascular: Rate: tachycardic, Rhythm: regular, Pulses: Pulses are 4+ in bilateral radial, brachial, femoral, popliteal, posterior tibial and and dorsalis pedis arteries.. Heart sounds: normal, normal S1and S2, no S3 or S4, no murmur, no rub, no gallop, Edema: is not appreciated, JVD: is not appreciated. 19:14 ECG was reviewed by the Attending Physician. [facility] Vital Signs: 17:50 BP 160 / 80; Pulse 110; Resp 20; Temp 103; Pulse Ox 95% on R/A; Weight 90.72 kg; bp 19:00 BP 126 / 72; Pulse 106; Resp 19; Pulse Ox 95% ; bp 20:30 BP 126 / 74; Pulse 91; Resp 18; Pulse Ox 97% on R/A; jb4 21:30 BP 111 / 63; Pulse 83; Resp 17; Temp 98.7(TE); Pulse Ox 96% on R/A; jb4 MDM: 17:49 Patient medically screened. [facility] 19:12 Differential diagnosis: bacterial infection, URI, pneumonia. Data reviewed: vital [facility] signs, nurses notes, lab test result(s), EKG, radiologic studies, plain films. Data interpreted: phototypesetting equipment monitor: rate is 11 beats/min, rhythm is regular, Pulse oximetry: on room air is 95 %. Test interpretation: by ED physician or midlevel provider: ECG, plain radiologic studies. Counseling: I had a detailed discussion with the patient and/or guardian regarding: the historical points, exam findings, and any diagnostic results supporting the discharge/admit diagnosis, lab results, radiology results, the need to transfer to another facility, for higher level of care, [facility] does not immediately have the required specialist, family request. 08/15 18:10 Order name: Basic Metabolic Panel [facility] 08/15 18:10 Order name: CBC with Diff [facility] 08/15 18:10 Order name: LFT's [facility] 08/15 18:10 Order name: Magnesium [facility] 08/15 18:10 Order name: NT PRO-BNP [facility] 08/15 18:10 Order name: PT-INR [facility] 08/15 18:10 Order name: Troponin (emerg Dept Use Only) [facility] 08/15 18:10 Order name: Amylase, Serum [facility] 08/15 18:10 Order name: Blood Culture Adult (2) [facility] 08/15 18:10 Order name: CPK [facility] 08/15 18:10 Order name: Ckmb [facility] 08/15 18:10 Order name: Lactate [facility] 08/15 18:10 Order name: Lipase; Complete Time: 19:09 [facility] 08/15 18:10 Order name: Procalcitonin; Complete Time: 19:50 [facility] 08/15 18:10 Order name: Ptt, Activated; Complete Time: 19:09 [facility] 08/15 18:10 Order name: T\T\S [facility] 08/15 18:10 Order name: Urine Culture [facility] 08/15 18:10 Order name: Urine Microscopic Only [facility] 08/15 18:10 Order name: Basic Metabolic Panel; Complete Time: 19:09 [facility] 08/15 18:10 Order name: CBC with Automated Diff [facility] 08/15 18:10 Order name: Liver (Hepatic) Function; Complete Time: 19:09 [facility] 08/15 18:10 Order name: Magnesium; Complete Time: 19:09 [facility] 08/15 18:10 Order name: NT PRO-BNP; Complete Time: 19:09 [facility] 08/15 18:10 Order name: Protime (+INR); Complete Time: 19:09 [facility] 08/15 18:10 Order name: Troponin (Emerg Dept Use Only); Complete Time: 19:09 [facility] 08/15 18:10 Order name: Amylase; Complete Time: 19:09 [facility] 08/15 18:10 Order name: Blood Culture [facility] 08/15 18:10 Order name: Creatine Phosphokinase; Complete Time: 19:09 [facility] 08/15 18:10 Order name: CKMB Creatine Kinase MB; Complete Time: 19:09 [facility] 08/15 18:10 Order name: Lactate; Complete Time: 19:09 [facility] 08/15 18:10 Order name: XRAY Chest (1 view); Complete Time: 19:50 [facility] 08/15 18:10 Order name: EKG; Complete Time: 18:11 [facility] 08/15 18:10 Order name: Cardiac monitoring; Complete Time: 18:43 [facility] 08/15 18:10 Order name: EKG - Nurse/Tech; Complete Time: 19:32 [facility] 08/15 18:10 Order name: IV Saline Lock; Complete Time: 18:43 [facility] 08/15 18:10 Order name: Labs collected and sent; Complete Time: 18:43 [facility] 08/15 18:10 Order name: O2 Per Protocol; Complete Time: 18:43 [facility] 08/15 18:10 Order name: O2 Sat Monitoring; Complete Time: 18:43 [facility] 08/15 18:10 Order name: Accucheck; Complete Time: 18:43 [facility] 08/15 18:10 Order name: IV Saline Lock - Large Bore; Complete Time: 18:43 [facility] 08/15 18:10 Order name: Urine Dipstick-Ancillary (obtain specimen); Complete Time: 19:32 [facility] 08/15 18:10 Order name: Misc. Order: wet to dry; Complete Time: 21:16 [facility] 08/15 18:10 Order name: Foot Left 3 View XRAY [facility] 08/15 19:38 Order name: Urine Dipstick-Ancillary; Complete Time: 19:50 EDMS 08/15 19:39 Order name: Urine Dipstick-Ancillary EDMS 08/15 20:14 Order name: Manual Differential EDMS 08/15 21:16 Order name: SARS-COV-2 RT PCR EDMS EC:14 Rate is 99 beats/min. Rhythm is regular. QRS [place] is Normal. SC interval is normal. QRS wayne interval is normal. QT interval is normal. No Q waves. T waves are Normal. No ST changes noted. Clinical impression: NSR w/ Non-specific ST/T Changes and No evidence of ischemia. Interpreted by me. Reviewed by me. Administered Medications: 19:00 Drug: Acetaminophen 1000 mg Route: PO; jb4 19:00 Drug: NS 0.9% (30 ml/kg) 30 ml/kg Route: IV; Rate: bolus; Site: right forearm; jb4 19:00 Drug: Zosyn (piperacillin-tazobactam) 3.375 grams Route: IVPB; Infused Over: 60 mins; jb4 Site: right forearm; 20:00 Follow up: Response: No adverse reaction; IV Status: Completed infusion jb4 21:00 Drug: vancoMYCIN 1 grams Route: IVPB; Infused Over: 2 hrs; Site: left antecubital; jb4 Disposition Summary: 08/15/20 19:11 Transfer Ordered Transfer Location: [facility] Reason: Higher level of care wayne Condition: Fair wayne Problem: new wayne Symptoms: have improved wayne Accepting Physician: to Dr Koenig(08/15/20 22:13) mw2 Diagnosis - Cellulitis and acute lymphangitis of other parts of limb - left great toe wayne - Fever, unspecified wayne - Severe sepsis without septic shock wayne - Elevated white blood cell count wayne - Type 2 diabetes mellitus with foot ulcer wayne - Type 2 diabetes mellitus with hyperglycemia wayne - Hypomagnesemia wayne Forms: - Medication Reconciliation Form wayne - SBAR form wayne Signatures: Dispatcher [employer] EDMS Richardson Knott MD MD cha Bryson, James, RN RN jb4 Mike Metzger RN RN Luis Tariq mw2 Corrections: (The following items were deleted from the chart) 19:12 19:[address] Arya black cha 20:12 18:13 CORONAVIRUS+MRJeanLAB.BRZ ordered. EDWA EDWA 22:13 19:[address] Arya black mw2
--- NOTE | 2020-08-15 19:12 | ER ---
Nurse's Notes [facility] Name: Akshat Acuna Age: 80 yrs Sex: Male : 1940 Arrival Date: 08/15/2020 Time: 17:49 Bed 14 Private MD: Diagnosis: Cellulitis and acute lymphangitis of other parts of limb-left great toe;Fever, unspecified;Severe sepsis without septic shock;Elevated white blood cell count;Type 2 diabetes mellitus with foot ulcer;Type 2 diabetes mellitus with hyperglycemia;Hypomagnesemia Presentation: 08/15 17:50 Chief complaint: EMS states: SICK, GENERAL WEAKNESS, FEVER x1 WK. Coronavirus screen: bp At this time, the client does not indicate any symptoms associated with coronavirus-19. Ebola Screen: No symptoms or risks identified at this time. Initial Sepsis Screen: Does the patient meet any 2 criteria? Temp <36.0*C (96.8*F)) or > 38.3*C (100.9*F). HR > 90 bpm. Yes Does the patient have a suspected source of infection? Yes: Skin breakdown/wound. Risk Assessment: Do you want to hurt yourself or someone else? Patient reports no desire to harm self or others. Onset of symptoms is unknown. Care prior to arrival: Medication(s) given: Phenergan, 12.5 mg, IV initiated. 20 GA, in the left antecubital area, Glucose check: 155. 17:50 Method Of Arrival: EMS: [facility] bp 17:50 Acuity: AGA 2 bp Triage Assessment: 18:00 General: Appears distressed, uncomfortable, Behavior is calm, cooperative, appropriate bp for age. Pain: Denies pain. EENT: No deficits noted. Neuro: No deficits noted. Cardiovascular: Rhythm is sinus tachycardia. Respiratory: No deficits noted. GI: Ileostomy site is clean and dry. : No signs and/or symptoms were reported regarding the genitourinary system. Derm: LEFT GREAT TOE ADVANCING ERYTHEMA. Musculoskeletal: Swelling present in left first toe. Historical: - Allergies: 18:16 Codeine; bp - Home Meds: 18:16 aspirin 81 mg Oral chew 1 tab once daily [Active]; atorvastatin 40 mg oral tab 1 tab bp once daily [Active]; clopidogrel 75 mg oral tab 1 tab once daily [Active]; gabapentin 300 mg oral cap 1 cap 3 times per day [Active]; glipizide 10 mg Oral tab 1 tab 2 times per day [Active]; metformin 1,000 mg Oral tab 1 tab 2 times per day [Active]; metoprolol tartrate 50 mg Oral tab 1 tab 2 times per day [Active]; nitroglycerin 0.4 mg SL subl 1 tab every 5 minutes [Active]; alogliptin 6.25 mg oral tab 2 tab daily [Active]; isosorbide mononitrate 30 mg Oral Tb24 1 tab once daily [Active]; - PMHx: 18:16 Myocardial infarction; Diabetes mellitus; Hypertensive disorder; bp - Immunization history:: Adult Immunizations up to date. - Social history:: Smoking status: Patient denies any tobacco usage or history of. Screenin:16 Abuse screen: Denies threats or abuse. Denies injuries from another. Nutritional bp screening: No deficits noted. Tuberculosis screening: No symptoms or risk factors identified. Fall Risk Assessment: 18:00 General: SEE TRIAGE NOTE. bp 19:00 Reassessment: No changes from previously documented assessment. Patient and/or family bp updated on plan of care and expected duration. Pain level reassessed. Patient is alert, oriented x 3, equal unlabored respirations, skin warm/dry/pink. 20:30 Reassessment: Patient appears in no apparent distress at this time. Patient and/or jb4 family updated on plan of care and expected duration. Pain level reassessed. Patient is alert, oriented x 3, equal unlabored respirations, skin warm/dry/pink. 21:30 Reassessment: Patient appears in no apparent distress at this time. Patient and/or jb4 family updated on plan of care and expected duration. Pain level reassessed. Patient is alert, oriented x 3, equal unlabored respirations, skin warm/dry/pink. Vital Signs: 17:50 BP 160 / 80; Pulse 110; Resp 20; Temp 103; Pulse Ox 95% on R/A; Weight 90.72 kg; bp 19:00 BP 126 / 72; Pulse 106; Resp 19; Pulse Ox 95% ; bp 20:30 BP 126 / 74; Pulse 91; Resp 18; Pulse Ox 97% on R/A; jb4 21:30 BP 111 / 63; Pulse 83; Resp 17; Temp 98.7(TE); Pulse Ox 96% on R/A; jb4 ED Course: 17:49 Patient arrived in ED. bp 17:49 Richardson Knott MD is Attending Physician. [facility] 17:51 Triage completed. bp 18:10 Inserted saline lock: 18 gauge in right forearm, using aseptic technique. Blood bp collected. 18:16 Arm band placed on right wrist. bp 18:16 Patient has correct armband on for positive identification. Bed in low position. Call bp light in reach. Side rails up X2. Adult w/ patient. 18:33 XRAY Chest (1 view) In Process Unspecified. EDMS 18:33 Foot Left 3 View XRAY In Process Unspecified. EDMS 18:39 Mike Metzger, RN is Primary Nurse. bp 20:00 administrative approval given by Ibeth Pickering/ patient has been accepted to [facility] [address] bed 761/ Dr. Louie accepted the patient in transfer/ report to be called to [phone]. 20:58 Primary Nurse role handed off by Mike Metzger, [facility] 21:30 No provider procedures requiring assistance completed. Patient transferred, IV remains jb4 in place. Administered Medications: 19:00 Drug: Acetaminophen 1000 mg Route: PO; jb4 19:00 Drug: NS 0.9% (30 ml/kg) 30 ml/kg Route: IV; Rate: bolus; Site: right forearm; jb4 19:00 Drug: Zosyn (piperacillin-tazobactam) 3.375 grams Route: IVPB; Infused Over: 60 mins; jb4 Site: right forearm; 20:00 Follow up: Response: No adverse reaction; IV Status: Completed infusion jb4 21:00 Drug: vancoMYCIN 1 grams Route: IVPB; Infused Over: 2 hrs; Site: left antecubital; jb4 Outcome: 19:11 ER care complete, transfer ordered by . wayne 21:30 Transferred by ground EMS EMS. to [facility], Transfer form completed. jb4 X-rays sent w/ patient. 21:30 Condition: stable 21:30 Discharge instructions given to patient, Instructed on the need for transfer, Demonstrated understanding of instructions. 22:13 Patient left the ED. 2 Signatures: Dispatcher [employer] EDRichardson Bhardwaj MD MD cha Bryson, James, RN RN jb4 Mike Metzger, RN RN bp Luis Domingo mw2 Corrections: (The following items were deleted from the chart) 18:16 18:00 Derm: No deficits noted. bp bp 18:16 18:00 Musculoskeletal: No deficits noted. bp bp 19:18 17:50 BP 160 / 80; Pulse 110bpm; Resp 20bpm; Pulse Ox 95% RA; Temp 103F; bp bp 22:11 21:30 BP 111 / 63; Pulse 83bpm; Resp 17bpm; Pulse Ox 96% RA; jb4 jb4
--- NOTE | 2020-08-15 19:13 | RAD REPORT ---
EXAM DESCRIPTION: RAD - Chest Single View - 08/15/2020 6:33 pm CLINICAL HISTORY: COUGH Chest pain. COMPARISON: Chest Pa And Lat (2 Views) dated 08/04/2018; CHEST SINGLE VIEW dated 08/25/2012; CHEST PA AND LAT 2 VIEW dated 02/10/2009 FINDINGS: Portable technique limits examination quality. Interstitial lung markings are mildly prominent. The heart is moderately enlarged. No displaced fract ures. IMPRESSION: Mild CHF.
[2020-08-15] MEDS ORDERED: NA CHLORIDE 0.9% 2,000 ML ONE (19:35)
[2020-08-15] MEDS ORDERED: NA CHLORIDE 0.9% 100 ML ONE (19:35)
[2020-08-15] MEDS ORDERED: ACETAMINOPHEN 500 MG TAB ONE (19:35)
[2020-08-15] MEDS ORDERED: PIPERACIL/TAZO 3.375 GM VIAL IV ONE (19:36)
[2020-08-15 19:38] LABS: Urine Blood Trace-intact (Negative); Urine Glucose Negative (Negative); Urine Protein 1+ (Negative); Urine pH 6.5 (5.0-7.0)
--- NOTE | 2020-08-15 20:00 | RAD REPORT ---
EXAM DESCRIPTION: RAD - Foot Left 3 View - 08/15/2020 6:33 pm CLINICAL HISTORY: Pain;Swelling COMPARISON: No comparisons FINDINGS: Great toe soft tissue swelling is evident. Large posterior and plantar calcaneal spurs. Va scular atherosclerosis seen. No radiographic evidence of osteomyelitis. Osteomyelitis remains a clini pennie concern, MRI would be recommended for followup.
[2020-08-15 20:37] LABS: Urine Bacteria >50 /HPF (NONE SEEN); Urine RBC NONE SEEN /HPF (NONE SEEN)
[2020-08-15] MEDS ORDERED: VANCOMYCIN 1 GM/VIAL ONE (21:13)
[2020-08-15 21:29] LABS: Blood Morphology Comment NOT SEEN (NOT SEEN); Platelet Estimate ADEQ
[2020-08-15 22:23] VITALS: BP 111/63; TEMP 98.7; O2SAT 96
--- NOTE | 2020-08-16 16:11 | EKG ---
Test Date: 2020-08-15 Test Time: 19:09:25 Personnel Specialist: BP MEASUREMENT RESULTS: Intervals: Rate: 99 PA: 130 QRSD: 88 QT: 344 QTc: 441 [place]: P: 96 PA: 130 QRS: -32 T: 82 INTERPRETIVE STATEMENTS: Normal sinus rhythm Left axis deviation Abnormal ECG Compared to ECG 08/04/2018 17:04:56 Left-axis deviation now present Electronically Signed On 08-16-20 16:08:36 CDT by Luis Phelps
== END 2020-08-15 22:13 | disposition short-term general hospital (02) ==
LOC: ER 17:40
DX: L03.032 Cellulitis of left toe (principal); R65.20 Severe sepsis without septic shock; L03.042 Acute lymphangitis of left toe; D72.829 Elevated white blood cell count, unspecified; E11.621 Type 2 diabetes mellitus with foot ulcer; L97.429 Non-pressure chronic ulcer of left heel and midfoot with unspecified severity; E11.65 Type 2 diabetes mellitus with hyperglycemia; E83.42 Hypomagnesemia; I10 Essential (primary) hypertension; Z79.82 Long term (current) use of aspirin; Z88.5 Allergy status to narcotic agent; Z20.822 Contact with and (suspected) exposure to COVID-19
CPT/HCPCS: 96365; 93005; 87040 ×2; 87088; 85025; 87086; 80048; 36415; 82150; 86900; 83735; 86850; 82550; 87205 ×3; 85610; 86901; 80076; 83605; 85730; 84484; 82553; 83690; 84145; 83880; 71045; 73630; 96375; 99285; U0003; J2543; J3370; J7030; 81003; 81015; 87077; 87186

== ENCOUNTER 2023-04-12 07:51 | Inpatient (IN) | payer OTHER ==
--- OUTSIDE RECORDS SUMMARY | 2023-04-12 11:36 | XMS REPORT | Clinical Summary ---
Author Name Unknown Organization [facility] [employer] Address [address] [place] [address] Care Team Providers Care Keno Dealer Name Role Phone Georgette Campos MD Primary Care Provider [phone] Obdulia Gilmore MD Unavailable Allergies Active Allergy Reactions Criticality Noted Date Comments Codeine 08/21/2018 Medications Medication Sig Dispensed Refills Start Date End Date Status gabapentin (NEURONTIN) 300 mg capsule Take 1 capsule (300 mg) by mouth at bedtime. 0 Active glipiZIDE (GLUCOTROL) 10 mg tablet Take 1 tablet (10 mg) by mouth twice daily. 0 Active metFORMIN (GLUCOPHAGE) 1000 mg tablet Take 1,000 mg by mouth twice daily. 0 Active atorvastatin (LIPITOR) 40 mg tablet Take 1 tablet (40 mg) by mouth at bedtime. 0 Active aspirin 81 mg EC tablet Take 1 tablet (81 mg) by mouth daily. 0 Active metoprolol tartrate (LOPRESSOR) 50 mg tablet Take 0.5 tablets (25 mg) by mouth twice daily. 0 Active nitroglycerin (NITROSTAT) 0.[address] 1 tablet (0.4 mg) under the tongue as needed. 0 Active losartan (COZAAR) 100 mg tablet Take 25 mg by mouth. 0 Active alogliptin 12.5 mg tab Take 1 tablet by mouth daily. 0 Active isosorbide mononitrate (IMDUR) 30 mg 24 hr tablet Take 1 tablet (30 mg) by mouth daily. 0 Active multivitamin (multivitamin) tablet Take 1 tablet by mouth daily. 0 Active no122/iron/folic acid ( MULTI ORAL) Take 1 tablet by mouth daily. 0 Active fish oil-omega-3 fatty acids 300-1,000 mg capsule Take 2 capsules (2 g) by mouth daily. 0 Active polyethylene glycol (GLYCOLAX) 17 gram/dose powderIndications:R ecovery following surgery Pour 17 gram (about 1 heaping tablespoon) of powder up to the indicated james on the cap of bottle. Dissolve and stir in any 4 to 8 ounces of beverage and drink as instructed by mouth daily. 238 g 0 10/10/2018 Active Additional Information Patient not taking.Reason: No longer taking, Reported on 06/18/2019 docusate sodium (COLACE) 100 mg capsuleIndications: Bladder cancer Take 1 capsule (100 mg) by mouth twice daily. 60 capsule 0 10/09/2018 Active Additional Information Patient not taking.Reason: No longer taking, Reported on 06/18/2019 clopidogrel (PLAVIX) 75 mg tabletIndications:R ecovery following surgery Take 1 tablet (75 mg) by mouth daily. 0 10/24/2018 Active multivitamin (THERAGRAN) tablet Take 1 tablet by mouth daily. 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 Bladder wall thickening compatible with the known primary tumor with some perivesical fat stranding that may represent tumor infiltration. 2. Scattered subcentimeter pulmonary nodules that are indeterminate and of uncertain clinical significance. Current use of antiplatelet 10/02/2018 Overview: On Plavix and aspirin Last Assessment & Plan: See above Type 2 diabetes mellitus well controlled 019 Overview: Lab Results Component Value Date POCA1C 6.7 (H) 08/21/2018 Last Assessment & Plan: Continue current diabetic medications Do not take any oral diabetic agents on the morning of surgery Swelling of lower leg 10/02/2018 Overview: Patient has denied any prior history of DVT But somehow, patient's left leg is significant bigger than his right leg although his right leg is the dominant one. Last Assessment & Plan: Left lower extremity Doppler study to rule out DVT today. Bladder cancer 09/26/2018 Overview: Added automatically from request for surgery [id number] Mass of urinary bladder 08/20/2018 Overview: Added automatically from request for surgery [id number] Hypertension 02/12/2008 Overview: Controled by medication BP Readings from Last 3 Encounters: 10/02/18 145/82 08/22/18 (!) 175/86 08/21/18 116/65 Last Assessment & Plan: Monitor blood pressure and heart rate at home Continue losartan at current dose daily, but hold the dose on the morning of the surgery Continue metoprolol tartrate 25 mg twice daily through surgery Sexual dysfunction 02/11/2003 Overview: After TURP Hyperlipidemia 02/12/2000 Overview: Control by medication Hearing loss 02/11/1967 Overview: Due to service. 90%?disabled Stented coronary artery Overview: Had total 5 stent employed in 2011 - 3 LAD AND 2 RCA Last cardiac stress test one week ago, negative for stress-induced ischemia Cleared by local correctional guard for surgery Last Assessment & Plan: Hold Plavix 1 week prior to surgery Continue aspirin 81 mg daily through surgery Continue atorvastatin 40 mg nightly through surgery Encounters Date Type Department Care Team Description 01/24/2023 12:00 PM AUTO CUSTOMIZE PAINTER Telemedicine [facility] [address] [facility], 7th [place] [address] Georgette Campos MD Bladder cancer (Primary Dx) 01/23/2023 11:40 AM AUTO CUSTOMIZE PAINTER Ancillary Procedure CT Imaging [address] [facility], [address] [place] [id number] Georgette Campos MD Bladder cancer 01/23/2023 11:00 AM AUTO CUSTOMIZE PAINTER Ancillary Procedure [facility] [address] [place] [id number] Georgette Campos MD Bladder cancer 01/23/2023 10:00 AM AUTO CUSTOMIZE PAINTER - 01/23/2023 11:59 PM AUTO CUSTOMIZE PAINTER Hospital Encounter [facility] [address] [place] [id number] Georgette Campos MD Bladder cancer Discharge Disposition: Home after 04/12/2022 Immunizations Name Administration Dates Next Due Pfizer SARS-CoV-2 Vaccination (Purple Cap) 11/17 Pfizer SARS-CoV-2 Vaccination 5-11 y.o. 04/04/19,03/14/2020 Surgical History Surgery Date Site/Laterality Comments BACK SURGERY 02/11/1971 - 02/11/1972 COLONOSCOPY 1999, 2009, 2018 PROSTATE SURGERY 2003 TURP MA CYSTOURETHROSCOPY W/DEST &/RMVL TUMOR LARGE 08/22/2018 Genitalia/Left Procedure: CYSTOURETHROSCOPY WITH FULGURATION AND/OR TREATMENT OF LARGE LESION(S) (>5.0 CM); Surgeon: Georgette Campos MD; Location: [facility]; Service: UROLOGY MA PELVIC EXAMINATION W/ANESTHESIA OTHER THAN LOCAL 08/22/2018 Bladder/N/A Procedure: PELVIC EXAMINATION UNDER ANESTHESIA; Surgeon: Georgette Campos MD; Location: [facility]; Service: UROLOGY CORONARY ANGIOPLASTY WITH STENT PLACEMENT 02/11/2014 - 02/10/2015 5 stents. MA UNLISTED LAPAROSCOPY PROCEDURE BLADDER 10/07/2018 Abdomen/N/A Procedure: ROBOTIC ASSISTED COMPLETE CYSTECTOMY with prostatectomy; Surgeon: Georgette Campos MD; Location: [facility] OR; Service: UROLOGY MA URETEROILEAL CONDUIT W/INTESTINE ANASTOMOSIS 10/07/2018 N/A Procedure: ROBOTIC ASSISTED URINARY DIVERSION-ILEAL CONDUIT; Surgeon: Georgette Campos MD; Location: MAIN OR; Service: UROLOGY MA LAPS SURG BILATERAL TOTAL PELVIC LMPHADECTOMY 10/07/2018 Bilateral Procedure: ROBOTIC ASSISTED PELVIC LYMPHADENECTOMY; Surgeon: Georgette Campos MD; Location: MAIN OR; Service: UROLOGY Medical History Medical History Date Comments Hypertension 2008 Controled by med ication Peripheral vascular disease August 2014 Hyperlipidemia 2001 Control by medic ation Neuropathy 2009 Take medication but progressively worsens Hearing loss 1967 Due to service. 90%?disabled Hepatitis 1950 Childhood illnes s Polyp of colon 1999 Some removed aft er each colonoscopy 1999, 2009, 2018 Urinary incontinence 2004 After TURP procedure on prostate Sexual dysfunction 2003 After TURP Benign prostatic hyperplasia 2003 Had TURP procedure Blood transfusion, without r eported diagnosis 2003 After TURP Diabetes mellitus 1994 Coronary arteriosclerosis Cancer Family History Medical History Relation Name Comments -Thoracic or Lung Brother David Gan -Genitourinary (Bladder, Kid kristopher, Prostate, Testicle) Father Jason Gan -Leukemia Mother Yodit Gan -Pancreatic cancer Sister Esperanza Wells Relation Name Status Comments Brother David Gan Father Jason Gan Mother Yodit Gan Sister Esperanza Wells Social History Tobacco Use Types Packs/Day Years Used Date Smoking Tobacco: Former Cigarettes 1.5 0 0 1957 - 1968 Smokeless Tobacco: Never Alcohol Use Standard Drinks/Week Comments Not Currently 1 (1 standard drink = 0.6 oz pur e alcohol) last month last Sex and Gender Information Value Date Recorded Sex Assigned at Not on file Gender Identity Not on file Sexual Orientation Not on file Job Start Date Occupation Industry Not on file Not on file Not on file Obstetrics History Last Filed Vital Signs Vital Sign Reading Time Taken Comments Blood Pressure 144/86 01/23/2023 3:45 PM AUTO CUSTOMIZE PAINTER Pulse 69 01/23/2023 3:45 PM AUTO CUSTOMIZE PAINTER Temperature - - Respiratory Rate 16 01/23/2023 2:28 PM AUTO CUSTOMIZE PAINTER Oxygen Saturation 99% 01/23/2023 3:45 PM AUTO CUSTOMIZE PAINTER Inhaled Oxygen Concentration - - Weight - - Height - - Body Mass Index - - Plan of Treatment Upcoming Encounters Date Type Department Care Team Description 01/22/2024 9:45 AM AUTO CUSTOMIZE PAINTER Ancillary Procedure Diagnostic Center [address] [facility], [address]nd [place] [address] Georgette Campos MD [address] [place], [place] [id number] 01/22/2024 10:00 AM AUTO CUSTOMIZE PAINTER Appointment [facility] [address] [place] [id number] Georgette Campos MD [address] [place] [address] 01/22/2024 10:45 AM AUTO CUSTOMIZE PAINTER Ancillary Procedure CT Imaging [address] [place] [address], 7th [place] [address] Georgette Campos MD [address] [place] [address] 01/23/2024 2:00 PM AUTO CUSTOMIZE PAINTER Telemedicine [facility] [address] [place] [address], 7th [place] [address] Georgette Campos MD [address] [place] [address] Health Maintenance Due Date Last Done Comments COVID-19 Vaccination ( 23-24 season) 2022 02/14/2022, 06/12/2021, 11/17/2020, Additional history exists Procedures Procedure Name Priority Date/Time Associated Diagnosis Comments CT ABDOMEN PELVIS W WO CONTRAST UROGRAM Routine 01/23/2023 3:42 PM AUTO CUSTOMIZE PAINTER Bladder cancer XR CHEST 2 VW Routine 01/23/2023 10:34 AM AUTO CUSTOMIZE PAINTER Bladder cancer .CBC Routine 01/23/2023 10:13 AM AUTO CUSTOMIZE PAINTER Bladder cancer PROSTATE SPECIFIC ANTIGEN Routine 01/23/2023 10:13 AM AUTO CUSTOMIZE PAINTER Bladder cancer COMPLETE BLOOD COUNT W/ DIFFERENTIAL Routine 01/23/2023 10:13 AM AUTO CUSTOMIZE PAINTER Bladder cancer COMPREHENSIVE METABOLIC PANEL Routine 01/23/2023 10:13 AM AUTO CUSTOMIZE PAINTER Bladder cancer after 04/12/2022 Results * CT Abdomen Pelvis with and without Contrast Urogram (01/23/2023 3:42 PM AUTO CUSTOMIZE PAINTER) Anatomical Region Laterality Modality Abdomen, Pelvis Computed Tomogra phy 01/23/2023 11:4 7 PM AUTO CUSTOMIZE PAINTER Impressions 01/23/2023 11:55 PM AUTO CUSTOMIZE PAINTER Stable examination with no evidence of recurrence or metastatic disease in the abdomen or pelvis. No suspicious upper tract urothelial lesion. Stable postsurgical changes of cystoprostatectomy with right lower quadrant ileal urinary conduit. ACTIONABLE ITEMS/RECOMMENDATIONS: None. Narrative 01/23/2023 11:55 PM AUTO CUSTOMIZE PAINTER Examination: CT ABDOMEN PELVIS W WO CONTRAST UROGRAM on 01/23/2023 3:42 PM. Clinical History: Bladder cancer. Indication: bladder cancer. Comparison: CT dated 01/17/2022 Technique: CT ABDOMEN PELVIS W WO CONTRAST UROGRAM . FINDINGS: Lower thorax: A few sub-5 mm scattered pulmonary nodules at the bilateral lung bases are stable. No new suspicious pulmonary nodule. Liver & biliary: No suspicious liver lesion. No biliary dilatation. The gallbladder is present. Spleen: No splenomegaly. Pancreas: No main duct dilatation or suspicious lesion. Adrenals: Stable small right adrenal nodular thickening. Unremarkable left adrenal. Kidneys, ureters, bladder: No hydronephrosis. No suspicious filling defect in bilateral renal collecting systems or opacified ureters. Stable right renal parapelvic cysts. Status post cystoprostatectomy with right lower quadrant ileal urinary conduit. Lymph nodes: No lymphadenopathy. GI tract: No dilated bowel. Colonic diverticula are present. Peritoneum: No ascites. Pelvic organs: Status post cystoprostatectomy. Vessels: No abdominal aortic aneurysm. Scattered atherosclerotic calcifications. MUSCULOSKELETAL: No destructive osseous lesion. Degenerative change in the spine and hips. Procedure Note Cindy Wood MD - 01/23/2023 Examination: CT ABDOMEN PELVIS W WO CONTRAST UROGRAM on 01/23/2023 3:42PM. Clinical History: Bladder cancer. Indication: bladder cancer. Comparison: CT dated 01/17/2022 Technique: CT ABDOMEN PELVIS W WO CONTRAST UROGRAM . FINDINGS: Lower thorax: A few sub-5 mm scattered pulmonary nodules at the bilaterallung bases are stable. No new suspicious pulmonary nodule. Liver & biliary: No suspicious liver lesion. No biliary dilatation. Thegallbladder is present. Spleen: No splenomegaly. Pancreas: No main duct dilatation or suspicious lesion. Adrenals: Stable small right adrenal nodular thickening. Unremarkable leftadrenal. Kidneys, ureters, bladder: No hydronephrosis. No suspicious filling defectin bilateral renal collecting systems or opacified ureters. Stable rightrenal parapelvic cysts. Status post cystoprostatectomy with right lowerquadrant ileal urinary conduit. Lymph nodes: No lymphadenopathy. GI tract: No dilated bowel. Colonic diverticula are present. Peritoneum: No ascites. Pelvic organs: Status post cystoprostatectomy. Vessels: No abdominal aortic aneurysm. Scattered atheroscleroticcalcifications. MUSCULOSKELETAL: No destructive osseous lesion. Degenerative change in thespine and hips. IMPRESSION: Stable examination with no evidence of recurrence or metastatic disease inthe abdomen or pelvis. No suspicious upper tract urothelial lesion. Stable postsurgical changes of cystoprostatectomy with right lowerquadrant ileal urinary conduit. ACTIONABLE ITEMS/RECOMMENDATIONS: None. Georgette Campos MD IMG CT ORDERABLES * X-ray Chest 2 Views (01/23/2023 10:34 AM AUTO CUSTOMIZE PAINTER) Anatomical Region Laterality Modality Chest Digital Radiogra phy 01/23/2023 10:3 5 AM AUTO CUSTOMIZE PAINTER Impressions 01/23/2023 10:39 AM AUTO CUSTOMIZE PAINTER No acute findings or metastatic disease in the chest. ACTIONABLE ITEMS/RECOMMENDATIONS: None. Narrative 01/23/2023 10:39 AM AUTO CUSTOMIZE PAINTER FULL RESULT: Examination: XR CHEST 2 VW on 01/23/2023 10:34 AM. Clinical History: Bladder cancer Indication: Other:, bladder cancer Comparison: 01/17/2022 Technique: Posteroanterior, lateral and dual-energy radiographs of the chest Findings: Support Apparatus: None. Lungs/Pleura/Mediastinum: The lung are clear. No pleural effusion or pneumothorax. Heart and mediastinal contours are normal. Procedure Note Drew Perez MD - 01/23/2023 FULL RESULT: Examination: XR CHEST 2 VW on 01/23/2023 10:34 AM. Clinical History: Bladder cancer Indication: Other:, bladder cancer Comparison: 01/17/2022 Technique: Posteroanterior, lateral and dual-energy radiographs of thechest Findings: Support Apparatus: None. Lungs/Pleura/Mediastinum: The lung are clear. No pleural effusion orpneumothorax. Heart and mediastinal contours are normal. IMPRESSION: No acute findings or metastatic disease in the chest. ACTIONABLE ITEMS/RECOMMENDATIONS: None. Georgette Campos MD G DIAGNOSTIC IMAGI NG ORDERABLES * (ABNORMAL) .CBC (01/23/2023 10:13 AM [facility]) White Blood Cell 8.0 4.1 - 10.5 K/uL 01/23/2023 10:28 AM [facility] Red Blood Cell 4.59 4.30 - 6.04 M/uL 01/23/2023 10:28 AM [facility] Hemoglobin 14.4 13.3 - 17.4 g/dL 01/23/2023 10:28 AM [facility] Hematocrit 42.2 39.5 - 51.8 % 01/23/2023 10:28 AM [facility] Mean Cell Volume 92 82 - 99 fL 01/23/2023 10:28 AM [facility] Mean Cell Hemoglobin 31.4 26.6 - 33.2 pg 01/23/2023 10:28 AM [facility] Mean Cell Hemoglobin Concentration 34.1 31.1 - 35.2 g/dL 01/23/2023 10:28 AM [facility] RDW-SD 44.6 37.5 - 49.7 fL 01/23/2023 10:28 AM [facility] Red Cell Diameter Width 13.2 11.6 - 15.5 % 01/23/2023 10:28 AM [facility] Platelet 205 160 - 397 K/uL 01/23/2023 10:28 AM [facility] Mean Platelet Volume 10.5 9.1 - 12.6 fL 01/23/2023 10:28 AM [facility] INRBC 0.0 0.0 - 0.1 /100 WBC 01/23/2023 10:28 AM [facility] Comment: The INRBC (instrument NRBC) value reflects the enumeration of nucleated red blood cells contained in a 200uL sample of whole blood analyzed by the instrument. This value may differ from the NRBC value reported in a manual differential, which is based on a 100 cell differential. Neutrophil % 67.9 43.2 - 72.7 % 01/23/2023 10:28 AM [facility] Lymphocyte % 14.8(L) 16.8 - 46.2 % 01/23/2023 10:28 AM [facility] Monocyte % 11.4 5.1 - 12.5 % 01/23/2023 10:28 AM [facility] Eosinophil % 4.6 0.4 - 6.3 % 01/23/2023 10:28 AM [facility] Basophil % 0.9 0.2 - 1.4 % 01/23/2023 10:28 AM [facility] IGRE % 0.4 0.1 - 1.5 % 01/23/2023 10:28 AM [facility] Comment:The IGRE% includes M etamyelocytes, Myelocytes and Promyelocytes. Neutrophil Abs 5.44 1.95 - 7.25 K/uL 01/23/2023 10:28 AM [facility] Lymphocyte Abs 1.18 1.01 - 3.24 K/uL 01/23/2023 10:28 AM [facility] Monocyte Abs 0.91(H) 0.24 - 0.85 K/uL 01/23/2023 10:28 AM [facility] Eosinophil Abs 0.37 0.02 - 0.50 K/uL 01/23/2023 10:28 AM [facility] Basophil Abs 0.07 0.02 - 0.09 K/uL 01/23/2023 10:28 AM [facility] IG Abs 0.03 0.01 - 0.12 K/uL 01/23/2023 10:28 AM [facility] Blood Venipuncture / Unknown 01/23/2023 10:13 AM [facility] 01/23/2023 10:18 AM [facility] Georgette Campos MD LAB BLOOD ORDERABLES [facility] [address] [facility] [place] [address] * (ABNORMAL) Comprehensive Metabolic Panel (01/23/2023 10:13 AM [facility]) Bilirubin Total 0.8 <=1.2 mg/dL 01/23/2023 10:56 AM [facility] Comment: Indocyanine Green (ICG) may cause falsely elevated bilirubin results. Total and direct bilirubin must not be measured from samples containing indocyanine green. False elevation of total bilirubin can be seen in patients with IgG concentrations above 28 g/L. This result was previously suppressed from the chart. Bilirubin Direct 0.2 <=0.3 mg/dL 01/23/2023 10:56 AM [facility] Comment: Indocyanine Green (ICG) may cause falsely elevated bilirubin results. Total and direct bilirubin must not be measured from samples containing indocyanine green. This result was previously suppressed from the chart. Bilirubin Indirect 0.6 0.0 - 0.9 mg/dL 01/23/2023 10:56 AM [facility] Comment:This result was prev iously suppressed from the chart. eGFR 68 >=60 mL/min/1. 73 sq. m 01/23/2023 10:56 AM [facility] Comment: The eGFRcr is calculated with the 2020 CKD-EPI creatinine equation using creatinine, patient's age, and sex for adults 18 years of age and older. Other factors, especially muscle mass, may affect accuracy and need to be considered. According to the Kidney Disease: Improving Global Outcomes (KDIGO) CKD Work Group 2012 Clinical Practice Guideline, chronic kidney disease (CKD) is defined as the abnormalities of kidney structure or function, present for more than 3 months, with implications for health. CKD should be classified by cause, GFR category, and albuminuria category. KDIGO guidelines provide the following GFR categories. Stage / Description / GFR mL/min/1.73 m2: G1* / Normal or high / >= 90 G2* / Mildly decreased / 60-89 G3a / Mildly to moderately decreased / 45-59 G3b / Moderately to severely decreased / 30-44 G4 / Severely decreased / 15-29 G5 / Kidney failure / <15 *In the absence of evidence of kidney damage, neither G1 nor G2 fulfill criteria for CKD. Tot Protein 7.2 6.4 - 8.3 gm/dL 01/23/2023 10:56 AM [facility] Comment:This result was prev iously suppressed from the chart. Calcium Level Total 9.5 8.2 - 10.2 mg/dL 01/23/2023 10:56 AM [facility] Comment:This result was prev iously suppressed from the chart. Alkaline Phosphatase 93 40 - 129 U/L 01/23/2023 10:56 AM [facility] Comment:This result was prev iously suppressed from the chart. Albumin Level 4.7 3.5 - 5.2 gm/dL 01/23/2023 10:56 AM [facility] Comment:This result was prev iously suppressed from the chart. AST 20 <=40 U/L 01/23/2023 10:56 AM [facility] Comment:This result was prev iously suppressed from the chart. ALT 15 <=41 U/L 01/23/2023 10:56 AM [facility] Comment:This result was prev iously suppressed from the chart. Sodium Level 138 136 - 145 mmol/L 01/23/2023 10:56 AM [facility] Comment:This result was prev iously suppressed from the chart. Potassium Level 4.6(H) 3.4 - 4.5 mmol/L 01/23/2023 10:56 AM [facility] Comment:This result was prev iously suppressed from the chart. Chloride 100 98 - 107 mmol/L 01/23/2023 10:56 AM [facility] Comment:This result was prev iously suppressed from the chart. CO2 24 22 - 29 mmol/L 01/23/2023 10:56 AM [facility] Comment:This result was prev iously suppressed from the chart. Anion Gap 14 4 - 14 mmol/L 01/23/2023 10:56 AM [facility] Comment:This result was prev iously suppressed from the chart. Creatinine 1.10 0.67 - 1.17 mg/dL 01/23/2023 10:56 AM [facility] Comment:This result was prev iously suppressed from the chart. BUN 16 6 - 23 mg/dL 01/23/2023 10:56 AM [facility] Comment:This result was prev iously suppressed from the chart. Glucose Level 155(H) 70 - 99 mg/dL 01/23/2023 10:56 AM [facility] Comment: Effective 09/07/15, the glucose reference intervals have been updated based on [place] [employer] guidelines (Standards of Medical Care in Diabetes 2016. Diabetes Care 2016; 39: S13-S22). Fasting blood glucose: Normal: 70-99 mg/dL Impaired fasting glucose (increased risk for diabetes or pre-diabetes): 100-125 mg/dL Diabetes mellitus: >/=126 mg/dL Random blood glucose: Normal: 70-199 mg/dL Note: Random glucose >100 mg/dL is associated with increased risk for diabetes. This result was previously suppressed from the chart. Blood Venipuncture / Unknown 01/23/2023 10:13 AM AUTO CUSTOMIZE PAINTER 01/23/2023 10:19 AM AUTO CUSTOMIZE PAINTER Georgette Campos MD LAB BLOOD ORDERABLES Performing Organization Address City/[facility] Co de Phone Number [facility] [address] [facility] [place] [address] * PSA (01/23/2023 10:13 AM [facility]) Prostate Specific Antigen <0.1 0.0 - 4.0 ng/mL 01/23/2023 11:10 AM [facility] Comment: "Reference range established based on adult population Results greater than 4519 ng/mL may not be reliable due to matrix effect with extended dilution as it exceeds the handmade tile artist's recommended limit. Caution should be exercised when interpreting such values and done in conjunction with clinical context. PSA Indication Diagnostic 01/23/2023 11:10 AM [facility] Blood Venipuncture / Unknown 01/23/2023 10:13 AM AUTO CUSTOMIZE PAINTER 01/23/2023 10:19 AM AUTO CUSTOMIZE PAINTER Georgette Campos MD LAB BLOOD ORDERABLES Performing Organization Address City/[facility] Co de Phone Number [facility] [address] [facility] [place] [address] after 04/12/2022 Advance Directives Latest Code Status on File Code Status Date Activated Date Inactivated Comments Full Code 10/07/2018 1:47 PM 10/11/2018 5:04 PM Code Status History Code Status Date Activated Date Inactivated Comments Full Code 08/22/2018 5:39 PM 08/22/2018 9:59 PM Care Teams Keno Dealer Relationship Specialty Start Date End Date Georgette Campos MD [address] [place] [id number] PCP - General Urology 08/08/18 Obdulia Gilmore MD [address] [place] [id number] Consulting Physician Internal Medicine 10/02/18
[2023-04-12] MEDS ORDERED: DOCUSATE NA/SENNA CONC 1 TAB PO PRN (13:31)
[2023-04-12] MEDS ORDERED: D50W 25 GM/50 ML SYRINGE IV PRN (13:31)
[2023-04-12] MEDS ORDERED: GLUCAGON 1 MG/VIAL IM PRN (13:31)
[2023-04-12] MEDS ORDERED: D10W 125 ML IV PRN (13:36)
[2023-04-12] MEDS: INSULIN REGULAR (HUMAN) 100 UNIT/ML SQ SCH (16:30)
[2023-04-12] MEDS: METFORMIN HCL 500 MG TAB PO SCH (17:16)
[2023-04-12] MEDS: terbinafine HCL 250 MG TAB PO SCH (17:16)
[2023-04-12] MEDS ORDERED: ASPIRIN EC 81 MG TAB PO SCH (20:00)
[2023-04-12] MEDS: APIXABAN 2.5 MG TABLET PO SCH (20:50)
[2023-04-12] MEDS: METOPROLOL TAR 50 MG TAB PO SCH (20:51)
[2023-04-12] MEDS: DOCUSATE NA/SENNA CONC 1 TAB PO SCH (20:51)
[2023-04-12] MEDS: ATORVASTATIN 40 MG TAB PO SCH (20:52)
[2023-04-12] MEDS: GABAPENTIN 300 MG CAP PO SCH (20:52)
[2023-04-12] MEDS: HYDROCODONE/APAP 7.5/325 MG TAB PO PRN (20:53)
[2023-04-12] MEDS: MELATONIN 3 MG TABLET PO PRN (20:55)
--- NOTE | 2023-04-12 22:27 | HP ---
Date of Admission: 04/12/2023 Time Of Service: 2:00 p.m. Chief Complaint: "My left hip was replaced and I have some pain." History Of Present Illness: Mr. Acuna is an 82-year-old, right-handed patient, with hypertension, d yslipidemia, diabetes mellitus, coronary artery disease, peripheral arterial disease. He has had chong dder cancer, status post cystectomy and he has a suprapubic diversion for bladder and hypothyroidism. He was independent, living with his , ambulating with a cane outdoors, and able to drive, but h ad worsening pain in the left hip, making it difficult for him to do activities of daily living. His symptoms failed to respond to conservative treatment and he was therefore evaluated by Orthopedic Conrad mayank to be a candidate for left total hip arthroplasty. Surgery was performed on the May 09 and a dmitted to [facility]. He was put at a weightbearing as tolerated with the left lower extremity foll owing surgery. Did have Ancef IV prior to his surgery, had a slightly elevated white blood cell coun t of 12.2, which still requires monitoring to rule out the worsening systemic infection. Surgical si te has good hemostasis, but requires continuous monitoring. Hemoglobin is slightly low at 10.6, and again requires monitoring for potential for replacement if he is to develop worsening anemia. His bl ood glucose is fairly uncontrolled 161. Does require daily evaluation and management. He was evalua lai by the therapy service and found to be at a moderate assistance for bed mobility, transfers, and ambulating only 3 steps with a rolling walker. He does have a left lower extremity antalgic gait due to the recent pain and surgery. He does require occupational therapy for his mobilization otherwise and activities of daily living. As a result, he is determined to be an appropriate candidate for in patient rehabilitation where his medical condition can be addressed adequately and he can avoid re-ho spitalization. Past Medical History: As noted above, arthritis; coronary artery disease; diabetes mellitus; COVID-1 9 infection; bladder cancer, status post bladder removal with diversion for urination and catheter. He has had a hearing loss, requires hearing aids, which he [facility] He has dyslipidemia, hypertension, peripheral artery disease. Past Surgical History: Back surgery, cardiac catheterization, coronary angioplasty with stent placem ent, cystectomy with continent diversion, hemicolectomy, and osteotomy 02/01/2021 and total hip arthr oplasty in the left hip. Allergies: CODEINE. Medications: Leland 7/325 every 6 hours as needed, Eliquis 2.5 mg twice daily, aspirin 81 mg daily, L ipitor 40 mg at bedtime. The patient did note no bowel movement in about 3 days since Saturday and he is on Dulcolax 5 mg twice daily. He has Celebrex for his arthritic pain, 200 mg daily; vitamin D 200 0 units daily; vitamin B12 1000 mcg daily, gabapentin 300 mg at bedtime. He has insulin sliding scal e, Imdur 30 mg daily, Synthroid 0.05 mg daily, Cozaar 25 mg daily, melatonin 3 mg at bedtime, Glucoph age 1000 mg twice daily, Lopressor 100 mg twice daily, Senokot S 2 at bedtime, Lamisil 250 mg every 2 4 hours. Family History: Noncontributory. Social History: Patient lives with family, his . No alcohol, tobacco, or drug use. Review of Systems: He does report when transferring pain going up to 8/10, but once he is seated or in bed, pain is real ly virtually nonexistent. Otherwise, he denies any fevers, chills. He does have the myalgias, arthr algias. No rash, headache, weight change, no psychiatric issues. Constipation for 3 days. He does report episodes of alternating constipation and diarrhea in the past. Otherwise, no other positives on systems review. Current Level Of Functioning: Eating, setup assistance. Oral hygiene setup assistance. Moderate as sistance for toileting. Maximum assist for showering. Moderate assist for upper body dressing, maxi mal assist for lower body dressing and donning and doffing of footwear. Rolling nsevq-xx-vtya, left- to-right, contact guard. From sit to stand and lying to sitting on a sliding board, moderate assista nce. From transferring from bed to chair, to toilet, to shower all moderate assistance. Moderate as sistance to ambulate with a rolling walker covering 3 feet. X-ray/imaging: X-ray of the pelvis on 04/10/2023 still shows he is status post left hip total arthro plasty with uncemented arthroplasty. Hardware is intact. No periprosthetic fracture or dislocation. There are expected postoperative changes in the soft tissue. There is diffuse and severe arterial calcification noted. Rehabilitation And Medical Assessment And Plan: Mr. Acuna is admitted to the rehabilitation unit wi th impairment category 08, orthopedic left lower extremity joint replacement. His impairment group c ode is 08.51, status post unilateral hip replacement. Etiologic Diagnosis: Osteoarthritis of the left hip. Comorbidities: Coronary artery disease; debility; decreased mobility; decreased physical functioning ; diabetes mellitus type 2; dyslipidemia; hypertension; hypokalemia; leukocytosis; peripheral arteria l disease; anemia; thrombocytopenia; bladder cancer, status post bladder resection with diversion in place for urination. Plan: He will have physical and occupational therapy for 3 hours a day, 5/7 days. We will continue the Lamisil for any fungal infection. Continue Senokot and Dulcolax for constipation. Lopressor 100 mg twice daily. For his hypertension, continue with Leland, gabapentin for pain. Continue Eliquis a nd aspirin for stroke and DVT risk reduction. Celebrex for arthritic changes and to reduce inflammat ion. Synthroid for hypothyroidism. Comorbidities That Are Impacting His Rehabilitation: At this point, he does have a risk of stroke. Given his stroke risk factors, diabetes, hypertension, and a recent hip surgery. He is on DVT prophy laxis and will continue it along with the aspirin. Of course, pain is managed with narcotics, but wi ll begin to minimize use of narcotics and will use neuromodulator, gabapentin at titrating dosage to achieve pain relief. In addition, he has had constipation and has had history of constipation and di arrhea. We will attempt to address the bowel habitus for him to have bowel movements around every 1- 2 days without having diarrhea. If diarrhea is there, we will have Imodium available. Rehab Specific Plan: Mr. Acuna will have physical and occupational therapy for 3 hours a day, 5/7 d ays to improve his ability to transfer from bed to chair, to shower and toilet. Also, he will be abl e to ambulate with a rolling walker covering 250 feet with modified independence, up and down 10 step s with modified independence, propel a wheelchair 250 feet, modified independence. If need be, [facility] will be involved. Mr. Acuna has a good understanding of the process of admission to the rehabilitation unit and that h e will receive physical and occupational therapy and if need be speech therapy. Based on how he is p rogressing involvement may need to be from the orthopedic Service the Cardiology Service, the hospita list service. Given his complex medical condition and risk of further complications, rehabilitation cannot be safely or effectively performed at a lower level facility such as [facility]. Barriers To Discharge: Currently, his pain may be a barrier. Again, we will address nonnarcotic trista romodulators, muscle relaxants, topical medications, and patches as needed. Also, does have a risk o f stroke. Again, aspirin to minimize that risk. Has a risk of bleeding and severe anemia and infect ion. All those will be addressed even after his discharge. Length Of Stay: About 12 days. Disposition: Home with home health and family. Prognosis: Good. Rehabilitation Goals: 1.Become independent with upper and lower body dressing, toileting, donning and doffing his shoes an d all activities of daily living. 2.Independently ambulate 250 feet with a rolling walker. 3.Independently go up and down 10 steps with bilateral handrails. 4.Independently propel a wheelchair 250 feet. 5.Independently perform all cognitive functioning with medication management, physician followup, an d safety awareness. 6.The above goals were reviewed with Mr. Acuna and he is in agreement. By signing this document, I acknowledge I have personally performed a full physical examination of Mr Jean Acuna no later than 24 hours after his admission to the inpatient rehabilitation facility and dete rmined that he is able to tolerate the above course of treatment at an intensive level for reasonable period of time. A detailed individualized plan of care for him will be completed by hospital day 4 based on the pre-admission screen, history and physical, and therapy evaluations. LINDEN/DELORIS Voice ID: [id number]
[2023-04-13 05:36] VITALS: BMI 25.1
[2023-04-13] MEDS: LEVOTHYROXINE SOD 0.05 MG TABLET PO SCH (07:21)
[2023-04-13 07:35] LABS: Absolute Basophils 0.1 K/uL (0-0.5); Absolute Eosinophils 0.4 K/uL (0-0.5); Absolute Lymphocytes (CBC) 0.8 K/uL (0.7-4.9); Absolute Monocytes 1.4 K/uL (0.1-1.3); Absolute Neutrophil 7.3 K/uL (1.8-8.0); Basophils % 0.5 % (0-1.3); Eosinophils % 4.1 % (0-4.4); Hematocrit 29.8 % (39.6-49.0); Hemoglobin 10.3 g/dL (13.6-17.9); Lymphocytes % 8.4 % (15.3-44.8); MCH 30.9 pg (27.0-35.0); MCHC 34.6 g/dL (32.0-36.0); MCV 89.2 fL (80-100); MPV 8.9 fL (7.6-11.3); Monocytes % 14.1 % (3.3-12.3); Neutrophils % 72.9 % (41.7-73.7); Platelets 138 thou/uL (152-406); RBC Red Blood Cell Count 3.34 M/uL (4.33-5.43); Red Cell Distribution Width 14.6 % (12.1-15.2)
[2023-04-13 07:57] LABS: Albumin 2.8 g/dL (3.4-5.0); Anion Gap 5.9 mEq/L (5.0-15.0); Magnesium 1.8 mg/dL (1.6-2.4); Potassium 3.9 mEq/L (3.5-5.1)
[2023-04-13] MEDS ORDERED: CLOPIDOGREL 75 MG TABLET PO SCH (08:00)
[2023-04-13] MEDS ORDERED: CYANOCOBALAMIN 1,000 MCG TAB PO SCH (08:00)
[2023-04-13] MEDS: CELECOXIB 100 MG CAPSULE PO SCH (08:16)
[2023-04-13] MEDS: CYANOCOBALAMIN 1,000 MCG TAB PO SCH (08:16)
[2023-04-13] MEDS: ASPIRIN EC 81 MG TAB PO SCH (08:18)
[2023-04-13] MEDS: LOSARTAN POTASSIUM 50 MG TABLET PO SCH (08:19)
[2023-04-13] MEDS: ISOSORBIDE MONO SR 30 MG TAB PO SCH (08:20)
[2023-04-13] MEDS: ALOGLIPTIN BENZOATE 6.25 MG TABLET PO SCH (08:21)
[2023-04-13] MEDS: VITAMIN D 1000 UNIT TAB PO SCH (08:21)
[2023-04-13] MEDS: ALOGLIPTIN BENZOATE 12.5 MG TABLET PO SCH (10:00)
[2023-04-13] MEDS ORDERED: BISACODYL 10 MG RECTAL SUPP PR PRN (18:53)
[2023-04-13] MEDS ORDERED: FLEET ENEMA ADULT PR PRN (18:53)
[2023-04-13] MEDS: BISACODYL E.C. 5 MG TAB PO PRN (20:07)
[2023-04-13] MEDS: ENSURE ENLIVE 237 ML CAN PO SCH (21:19)
[2023-04-14] MEDS: METOPROLOL TAR 50 MG TAB PO SCH (08:00)
[2023-04-14] MEDS: ISOSORBIDE MONO SR 30 MG TAB PO SCH (08:02)
[2023-04-14] MEDS: LOSARTAN POTASSIUM 50 MG TABLET PO SCH (08:02)
[2023-04-14] MEDS: FE SULF/FA/VIT B COMP & C TAB PO SCH (08:21)
[2023-04-14] MEDS: FERROUS SULFATE 325 MG TAB PO SCH (08:22)
--- NOTE | 2023-04-14 18:35 | PN ---
Date of Progress Note: 04/14/2023 Time Of Service: 1:20 p.m. Subjective: Mr. Acuna is doing well. He says he is happy. Finally had a bowel movement after abou t 4 days, but he had 1 yesterday and today and he is mildly worried that he may run into diarrhea, wh ich did occur in the past as he has had abdominal surgery and for many years he is like that. Otherw ise, he is happy with physical therapy, occupational therapy. He has no new complaints. Sleeping we ll and no negatively impacting issues. Objective: No fevers or chills. No nausea or vomiting. No rash. No psychiatric complaints. Physical Examination: Vital Signs: Blood pressure 111/53, pulse of 70, respiratory rate 14, temperature 97.6, oxygen satur ation 98%. General: Mr. Acuna is lying in bed. He is in no significant distress. HEENT: He appears normocephalic, atraumatic. Sclerae anicteric. Oropharynx pink and moist. Neck: Supple. Chest: Clear. Heart: Regular. Extremities: Show no significant edema, cyanosis. His left hip surgical site has good hemostasis an d again, he has trace edema there. Laboratory Studies: White blood cell count 10, hemoglobin 10.3, platelets are 138. Sodium 141, pota ssium 3.9, chloride 112, carbon dioxide 27, BUN 22, creatinine 1.18, glucose ranged from 158 to 163, calcium 8.9, magnesium 1.8, albumin 2.8, prealbumin 13.0. He has implanted catheter in the suprapubi c region into the bladder and likely be colonized with bacteria and urinalysis will be held at this p oint, since his white blood cell count is normal and he has no evidence of any systemic infection. Medications: Rickman 7/325 every 6 hours as needed, Eliquis 2.5 mg twice daily, aspirin 81 mg daily, L ipitor 40 mg at bedtime, Dulcolax 5 mg twice daily as needed for constipation and per rectum 10 mg da nai as needed, Celebrex 200 mg daily, vitamin D 2000 units daily, B12 of 2000 mcg sublingual daily, f errous sulfate 325 mg daily, gabapentin 300 mg at bedtime, Imdur 30 mg daily, Synthroid 0.05 mg daily , Cozaar 25 mg daily, metformin 1000 mg daily, melatonin 3 at bedtime, Lopressor 50 mg twice daily, H emocytePlus 1 tablet daily, Ensure Enlive 237 mL twice daily, Senokot-S 2 at bedtime, and Fleets enem a as needed, Lamisil 250 mg every 12 hours as needed. Progress Made With Physical And Occupational Therapy: With Physical Therapy, it was noted that he di d yesterday, he said he was not very motivated to do a lot of therapy. He did do some seated exercis es. He raised his heel, knee extension, pillow squeezes, isometric hip abduction and abduction exerc ises. He did perform in the parallel bars 10 steps. He also ambulated 50 feet and then 200 feet wit h minimum to contact guard assistance requiring some cuing for hip precautions. Wheelchair mobilizat ion 60 feet twice with contact guard assistance. With occupational therapy, completed oral care supe rvision, hand and face washing also supervision, and use of dowel sade 2 pounds with upper extremity t o strengthen his arms. Moderate assistance slowly from bed to chair. Mr. Acuna is making good progress with his physical and occupational therapy thus far and he is able to begin to ambulate and perform some activities of daily living with supervision goal would be gett ing him to modified independence. Assessment: Mr. Acuna is an 82-year-old patient admitted to the rehabilitation unit with osteoarthr itis of the left hip, status post total hip arthroplasty on the left. He has hypertension, hypokalem ia, and leukocytosis, peripheral arterial disease, cancer of the bladder status post bladder resectio n with diversion for urination, thrombocytopenia. Plan: 1.Continue with physical and occupational therapy for 3 hours a day, 5 of 7 days. 2.His medications are continued including aspirin 81 mg daily and Eliquis 2.5 mg daily for stroke an d DVT risk reduction, atorvastatin 40 mg at bedtime for dyslipidemia, vitamin B12 and D for low vitam in B12 and D levels, ferrous sulfate with HemocytePlus for iron and protein for both malnutrition and anemia. Levothyroxine for hypothyroidism, continue with Cozaar, metoprolol for blood pressure manag ement. Continue with Lamisil for pelvic infection. Senokot for constipation. Comorbidities That Are Continuing To Impact His Rehabilitation: He is actually doing well. He actua lly has weightbearing as tolerated status with the left lower extremity and hip precautions in the an terior region, where he is not to bend more 90 degrees and cross the legs. LB/MODL Voice ID: [id number] Report ID: [id number]
[2023-04-15] MEDS: INSULIN REGULAR (HUMAN) 100 UNIT/ML SQ SCH ×2 (07:30→16:30)
--- NOTE | 2023-04-15 08:45 | P.CNS ---
Date of Consult: 04/15/23 Reason for Consult: painful toenails Chief Complaint: Painful toenails Allergies codeine Allergy (Verified 08/06/18 22:27) Nausea/Vomiting Home Medications: Aspirin [Aspirin EC 81 MG] 81 mg PO DAILY 08/04/18 Atorvastatin Calcium [Lipitor] 40 mg PO BEDTIME 08/04/18 Clopidogrel Bisulfate [Plavix] 75 mg PO DAILY 08/04/18 Docosahexanoic AC/Epa [Fish Oil 1,000 MG CAP] 2,000 mg PO DAILY 08/04/18 Finasteride 5 mg PO DAILY 08/04/18 Gabapentin 300 mg PO BEDTIME 08/04/18 Isosorbide Mononitrate [Isosorbide Mononitrate ER] 30 mg PO [id number] 08/04/18 Losartan Potassium 25 mg PO [id number] 08/04/18 Metformin HCl [Glucophage] 1,000 mg PO BID 08/04/18 Metoprolol Tartrate [Lopressor] 25 mg PO BID 08/04/18 Mv-Min/Folic/K1/Lycopen/Lutein [Centrum Silver Men Tablet] 1 each PO DAILY 08/04/18 glipiZIDE [Glipizide ER] 10 mg PO DAILY 08/04/18 - Past Medical/Surgical History Diabetic: Yes -: hypertension -: diabetes -: cad -: turp -: back surgery -: stent placement (five stents total) - Family History Mother Medical History: Cancer Father Medical History: Cancer Notes: prostate Brother Medical History: Cancer - Social History Alcohol use: No CD- Drugs: Yes Caffeine use: No Place of Residence: Home Review of Systems 10-point ROS is otherwise unremarkable Physical Examination Temp Pulse Resp BP Pulse Ox 97.6 F 78 18 99/58 L 96 04/15/23 08:00 04/15/23 08:00 04/15/23 08:00 04/15/23 08:00 04/15/23 08:00 General: Alert, In no apparent distress, Oriented x3 Cardiovascular: No edema, Abnormal pulses (0/4 dp and pt pulses bilateral feet) Capillary refill: <2 Seconds Musculoskeletal: No clubbing, No swelling, No contractures, No erythema, No tenderness, No warmth Integumentary: No rashes, No breakdown, No significant lesion, No tenderness/swelling, No erythema, No warmth, No cyanosis, Other (Thickened hypertrophic nails with subungual debris x 10) Neurological: Abnormal sensation - Problems (1) Tinea unguium Current Visit: Yes Status: Acute (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
[2023-04-15] MEDS ORDERED: D50W 25 GM/50 ML SYRINGE IV PRN (15:11)
[2023-04-15] MEDS ORDERED: GLUCAGON 1 MG/VIAL IM PRN (15:11)
--- NOTE | 2023-04-15 20:33 | PN ---
Date of Progress Note: 04/15/2023 Time Of Service: 1:30 p.m. Subjective: Mr. Acuna is doing very well. Denies any significant issues. His left thigh, he does have an ice pack therapy. With therapy, there was some mild pain, but he did not want any additional medications. He did have 2 bowel movements today, but denies any diarrhea. He has no other complai nts. No fevers or chills. Some mild myalgias in the left thigh area where he has surgery for total hip ar throplasty for osteoarthrosis. Has no other complaints. Review of Systems: No fevers, chills, nausea, vomiting. Physical Examination: Vital Signs: Blood pressure 183/88 and pulse of 76 while lying; while sitting, blood pressure 150/73 , pulse 75; and while standing, blood pressure dropped to 99/58, pulse of 78. He is mildly symptomat ic with his orthostatics. Oxygen saturation 92%. Respiratory rate 16 to 20, temperature 97.6. Weig ht 180 pounds, height 5 feet 11 inches, BMI 25.1. General: Mr. Acuna again is resting comfortably in his bed. He does have a cold pack on the left t high area. HEENT: Otherwise, he is normocephalic, atraumatic. Sclerae anicteric. Oropharynx pink and moist. Neck: Supple. Chest: Clear. Extremities: No significant edema noted in the lower extremity where he has a surgery just trace, th at is on the left. Laboratory Studies: White blood cell count 10.0, hemoglobin 10.3, platelets 138. Blood glucose rang ed from 119 to 193. Medications: His medications have been reviewed and remain unchanged. Progress Made With Physical And Occupational Therapy: Today with physical therapy, he ambulated with a rolling walker 200 feet, another 100 feet twice and 55 feet twice with contact guard assistance. Mobilized with wheelchair 175 feet with standby assistance. Did go up and down 10 steps with bilater al handrails with contact guard assistance and verbal cues. With occupational therapy, standby odilia tance for vni-pr-lgril transfers and stand to sit transfers with verbal cues as well. Mr. Acuna is making good progress so far with physical and occupational therapy, very slight limitat ion by pain and some loose stools, but has abated. Assessment: Mr. Acuna is an 82-year-old patient in the rehabilitation unit with left total hip arth roplasty for osteoarthrosis of the left hip. He has hypertension; ; urinary diversion, sta tus post bladder resection; peripheral artery disease; leukocytosis; and thrombocytopenia. Plan: 1.Continue with physical and occupational therapy for 3 hours, 5 of 7 days. 2.He has Eliquis and aspirin for stroke and DVT risk reduction, atorvastatin for dyslipidemia, and v itamin B12 and D3 for low vitamin B12 and D3, ferrous sulfate and Hemocyte Plus for iron-deficiency a nemia, Synthroid for hypothyroidism, Cozaar and metoprolol for blood pressure management. He has Sen okot-S for constipation. Comorbidities That Are Continuing To Impact His Rehabilitation: His left lower extremity where he dickinson s some spasms and pain in the left thigh is medicated with the cold pack and we will add if need be a dditional medications such as muscle relaxant and adjustment of the neuromodulator, gabapentin. LINDEN/DELORIS Voice ID: [id number] Report ID: [id number]
[2023-04-16 16:12] LABS: Specific Gravity 1.021 (1.005-1.030); Sqamous Epithelial <5 /HPF (None Seen); Urine Bacteria <20 /HPF (<20); Urine Bilirubin NEGATIVE (Negative); Urine Blood 3+ (Negative); Urine Clarity Extremely Turbid (Clear); Urine Color Yellow (Yellow); Urine Crystals Unidentified Few /HPF (None Seen); Urine Culture Reflex Order REFLEXED; Urine Glucose NEGATIVE (Negative); Urine Ketones TRACE (Negative); Urine Micro Reflex YN NO BILL MICROSCOPIC; Urine Mucus 2+ /HPF (None Seen); Urine Nitrite NEGATIVE (Negative); Urine Protein 2+ (Negative); Urine RBC >50 /HPF (None Seen); Urine Urobilinogen 1+ (Normal); Urine WBC >50 /HPF (<5); Urine WBC Clump Occasional /HPF (None Seen)
[2023-04-16] MEDS: CRANBERRY FRUIT EXTRACT 200 MG CAP PO SCH (18:52)
--- NOTE | 2023-04-16 21:00 | PN ---
Date of Progress Note: 04/16/2023 Time Of Service: 1:30 p.m. Subjective: Mr. Acuna is doing very well. Denies any significant pain in the left hip surgical sit e and the left thigh also is doing well today. Did have a good lunch and reported no complaints. Review of Systems: No fevers, chills. No significant myalgias, arthralgias, rash, headache, weight change. No other co mplaints. Physical Examination: Vital Signs: Blood pressure 116/57, pulse 74, respiratory rate 16, temperature 97.6, oxygen saturati on 97%. General: Mr. Acuna is doing well, resting in bed. He is in no acute distress. HEENT: He is normocephalic, atraumatic. Sclerae anicteric. Oropharynx moist. Neck: Supple. Chest: Clear. Heart: Regular. Extremities: No significant edema, cyanosis, or clubbing. Mild in the left lower extremity. Laboratory Studies: Blood glucose ranged from 96 to 128. X-ray/imaging: No new x-rays or imaging. Consultations: The patient was seen by Dr. Uche Salas on the Podiatry Service. He was diagnosed w ith tinea unguium and of course type 2 diabetes without peripheral angiopathy or gangrene, and Dr. Betsy pardo performed debridement of the nails at bedside. Progress Made With Physical And Occupational Therapy: Today with physical therapy, completed multipl e cyj-ea-suijs transfers with contact guard assistance and dow-mq-qvpynn with contact guard assistanc e, scooting with minimum assistance. He did work on gait training and covered 750 feet with a yovani g walker with contact guard assistance. He went up and down 15 steps with bilateral handrails with c ontact guard assistance and propelled a wheelchair 250 feet twice with contact guard assistance and t hen ambulated another 250 feet and then 500 feet with a rolling walker with between contact guard and minimum assistance. With occupational therapy, supervision for shower transfers and bed mobilizatio n, independent for self propelling wheelchair from room to the shower. Mr. Acuna is making excellent progress with his physical and occupational therapy, recovering very w ell. Assessment: Mr. Acuna is an 82-year-old patient with left total hip arthroplasty, who was doing pattie y well. He has hypertension, urinary diversion, status post bladder resection. He also has peripher al artery disease, leukocytosis, thrombocytopenia. Plan: 1.Continue with physical and occupational therapy for 3 hours a day, 5 of 7 days. 2.He will continue all medications including Eliquis, aspirin, atorvastatin, ferrous sulfate, Hemocy te Plus, Synthroid, Cozaar, metoprolol, and Senokot. Comorbidities That Are Continuing To Impact His Rehabilitation: At this point, his comorbidities are well controlled and do not negatively impact his rehabilitation. LINDEN/DELORIS Voice ID: [id number] Report ID: [id number]
[2023-04-17 05:06] LABS: Absolute Basophils 0.1 K/uL (0-0.5); Absolute Eosinophils 0.6 K/uL (0-0.5); Absolute Monocytes 1.2 K/uL (0.1-1.3); Absolute Neutrophil 4.6 K/uL (1.8-8.0); Eosinophils % 8.3 % (0-4.4); Hematocrit 31.1 % (39.6-49.0); Hemoglobin 11.1 g/dL (13.6-17.9); Lymphocytes % 13.1 % (15.3-44.8); MCH 31.3 pg (27.0-35.0); MCHC 35.8 g/dL (32.0-36.0); MCV 87.5 fL (80-100); MPV 8.3 fL (7.6-11.3); Monocytes % 16.1 % (3.3-12.3); Neutrophils % 61.5 % (41.7-73.7); Platelets 222 thou/uL (152-406); RBC Red Blood Cell Count 3.55 M/uL (4.33-5.43); Red Cell Distribution Width 14.6 % (12.1-15.2)
--- NOTE | 2023-04-17 21:51 | PN ---
Date of Progress Note: 04/17/2023 Time Of Service: 1:20 p.m. Subjective: Mr. Acuna is doing very well. Denies any significant pain. Still has a cold pack at t he left thigh, but says just some soreness there. Review of Systems: No fevers, chills, nausea, vomiting. No significant myalgias, arthralgias, rash, headache, weight ch bolivar. Physical Examination: Vital Signs: Blood pressure 143/70, pulse 67, respiratory rate 18, temperature 98.4, oxygen saturati on 99%. General: Mr. Acuna is resting in bed. He is in no acute distress. HEENT: He is normocephalic, atraumatic. Sclerae anicteric. Oropharynx pink and moist. Neck: Supple. Chest: Clear. Extremities: Left lower extremity trace edema, otherwise intact. Laboratory Studies: White blood cell count 7.5, hemoglobin 11.1, platelets 222. His glucose ranged from 124 to 175. X-ray/imaging: No new x-rays or imaging. Medications: Medications have been reviewed and remained unchanged. Progress Made With Physical And Occupational Therapy: Today, he ambulated 250 feet 3 times with a ro lling walker and contact guard assistance. Also mobilized a wheelchair 250 feet with a rolling walke r and contact guard assistance. With occupational therapy, ambulating from room to gym with a yovani g walker with standby assistance. Propel a wheelchair to the gym independently. Mr. Acuna is making excellent progress with physical and occupational therapy and will be on track f or his discharge around a 7-day period. He will be discharged likely on Saturday, today is Saturday. Assessment: Mr. 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 His urinary diversion from urinary bladder resection is intact, peripheral artery disease, leukocytosis, and thrombocytopenia or other comorbidi ties. Plan: 1.Continue with physical and occupational therapy for 3 hours a day, 5 of 7 days. 2.Continue with all comorbid condition medications including the Eliquis for DVT prophylaxis, aspiri n for stroke risk reduction, atorvastatin for dyslipidemia, ferrous sulfate and Hemocyte Plus for ane odilia. He has Synthroid, Cozaar, metoprolol, and Senokot as well. Comorbidities That Are Impacting His Rehabilitation: His comorbidities are stably managed and do not negatively impact his rehabilitation. LB/MODL Voice ID: [id number] Report ID: [id number]
[2023-04-18 06:10] LABS: Absolute Basophils 0.1 K/uL (0-0.5); Absolute Eosinophils 0.7 K/uL (0-0.5); Absolute Lymphocytes (CBC) 0.8 K/uL (0.7-4.9); Absolute Monocytes 1.3 K/uL (0.1-1.3); Absolute Neutrophil 6.1 K/uL (1.8-8.0); Basophils % 0.9 % (0-1.3); Eosinophils % 7.9 % (0-4.4); Hematocrit 32.8 % (39.6-49.0); Hemoglobin 11.6 g/dL (13.6-17.9); MCH 30.9 pg (27.0-35.0); MCHC 35.2 g/dL (32.0-36.0); MCV 87.8 fL (80-100); MPV 7.8 fL (7.6-11.3); Monocytes % 14.4 % (3.3-12.3); Neutrophils % 67.8 % (41.7-73.7); Platelets 263 thou/uL (152-406); RBC Red Blood Cell Count 3.74 M/uL (4.33-5.43); Red Cell Distribution Width 14.4 % (12.1-15.2)
[2023-04-18 06:31] LABS: Albumin 2.9 g/dL (3.4-5.0); Anion Gap 9.1 mEq/L (5.0-15.0); Magnesium 1.8 mg/dL (1.6-2.4); Potassium 5.1 mEq/L (3.5-5.1); Prealbumin 15.9 mg/dL (20-40)
--- NOTE | 2023-04-18 20:15 | PN ---
Date of Progress Note: 04/18/2023 Time Of Service: 3:35 p.m. Subjective: Mr. Acuna is doing well. He is at the sink taking care of his allusions. He has no ne w complaints. He says there is mild soreness of the left thigh where his surgical site is just above that. No other complaints. Objective: No fevers, chills, nausea, vomiting, myalgias, arthralgias, rash, headache, weight change . Physical Examination: Vital Signs: Blood pressure 116/60, pulse of 72, respiratory rate 16, temperature 97.3, oxygen satur ation 99%. Weight 180 pounds, height 5 feet 11 inches, BMI 25.1. General: Mr. Acuna again is sitting in a chair at the sink. HEENT: He is normocephalic, atraumatic. Sclerae anicteric. Oropharynx pink and moist. Neck: Supple. Chest: Clear. Extremities: Left lower extremity show no significant clubbing, cyanosis, or edema. Laboratory Studies: White blood cell count 8.9, hemoglobin 11.6, platelets 263. Sodium 136, potassi um 5.1, chloride 104, carbon dioxide 28, BUN 21, creatinine 1.05, glucose ranged from 142 to 184, pennie cium 9.1, magnesium 1.8, albumin 2.9, prealbumin 15.9. Medications: His medications have been reviewed and they remain unchanged. X-ray/imaging: No new x-rays or imaging. Progress Made With Physical And Occupational Therapy: Today, he was able to ambulate 300 feet, anoth er 325 feet, all independently with a rolling walker. He is able to go up and down 15 steps with darius ateral handrails independently. [id number]-[id number]-pnm transfers done independently. Ehi-pw-yamta transfers done independently. With occupational therapy, independent with ADLs and transfers, independent with bathing, upper body dressing, lower body dressing, donning and doffing footwear, all independent. S vplho-bv-zpd 3 times done independently. Mr. Acuna is making excellent progress with his physical and occupational therapy. He will be ready for discharge very soon. Assessment: Mr. Acuna is an 82-year-old patient in the rehabilitation unit with osteoarthrosis of t he left hip, status post left total hip arthroplasty and is doing excellent with physical and occupat ional therapy. 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 He has peripheral artery disease, leukocytosis, thrombocytopenia, which are all improvin g well. He has chronic anemia, which is improving and postoperative anemia as well. Plan: 1.Continue with physical and occupational therapy for 3 hours a day, 5 of 7 days. 2.Continue with all medications including Eliquis for DVT prophylaxis, atorvastatin for dyslipidemia , ferrous sulfate and Hemocyte Plus for anemia. He has Synthroid for hypothyroidism, Cozaar and meto prolol for hypertension, Senokot-S for constipation. Comorbidities That Are Impacting Rehabilitation: His comorbidities are stably managed and do not neg atively impact his rehabilitation. LINDEN/DELORIS Voice ID: [id number] Report ID: [id number]
[2023-04-19 08:10] VITALS: TEMP 97.8
[2023-04-19 08:38] VITALS: BP 123/67
--- NOTE | 2023-04-19 13:42 | P.RH.PN ---
Estimated Length of Stay: 10 Expected Discharge Date: 04/20/23 Discharge Disposition Plan: Home Family Support: Yes Skilled Nursing Goal: Mobility, Transfers, Self Care Vital Signs: Last Vital Signs Temp 97.8 F 04/19/23 07:47 Pulse 97 H 04/19/23 08:18 Resp 16 04/19/23 12:50 BP 123/67 04/19/23 08:18 Pulse Ox 95 04/19/23 12:50 Laboratory: Laboratory Last Values WBC 8.90 thou/uL (4.3-10.9) 04/18/23 05:30 RBC 3.74 M/uL (4.33-5.43) L 04/18/23 05:30 Hgb 11.6 g/dL (13.6-17.9) L 04/18/23 05:30 Hct 32.8 % (39.6-49.0) L 04/18/23 05:30 MCV 87.8 fL (80-100) 04/18/23 05:30 MCH 30.9 pg (27.0-35.0) 04/18/23 05:30 MCHC 35.2 g/dL (32.0-36.0) 04/18/23 05:30 RDW 14.4 % (12.1-15.2) 04/18/23 05:30 Plt Count 263 thou/uL (152-406) 04/18/23 05:30 MPV 7.8 fL (7.6-11.3) 04/18/23 05:30 Neutrophils % 67.8 % (41.7-73.7) 04/18/23 05:30 Lymphocytes % 9.0 % (15.3-44.8) L 04/18/23 05:30 Monocytes % 14.4 % (3.3-12.3) H 04/18/23 05:30 Eosinophils % 7.9 % (0-4.4) H 04/18/23 05:30 Basophils % 0.9 % (0-1.3) 04/18/23 05:30 Absolute Neutrophils 6.1 K/uL (1.8-8.0) 04/18/23 05:30 Absolute Lymphocytes 0.8 K/uL (0.7-4.9) 04/18/23 05:30 Absolute Monocytes 1.3 K/uL (0.1-1.3) 04/18/23 05:30 Absolute Eosinophils 0.7 K/uL (0-0.5) H 04/18/23 05:30 Absolute Basophils 0.1 K/uL (0-0.5) 04/18/23 05:30 Sodium 136 mEq/L (136-145) 04/18/23 05:30 Potassium 5.1 mEq/L (3.5-5.1) 04/18/23 05:30 Chloride 104 mEq/L (98-107) 04/18/23 05:30 Carbon Dioxide 28 mEq/L (21-32) 04/18/23 05:30 Anion Gap 9.1 mEq/L (5.0-15.0) 04/18/23 05:30 BUN 21 mg/dL (7-18) H 04/18/23 05:30 Creatinine 1.05 mg/dL (0.70-1.30) 04/18/23 05:30 Est GFR (CKD-EPI) 72 ml/min (=/>90) L 04/18/23 05:30 Glucose 148 mg/dL (74-106) H 04/18/23 05:30 POC Glucose 144 mg/dL (65-120) H 04/19/23 11:49 Calcium 9.1 mg/dL (8.5-10.1) 04/18/23 05:30 Magnesium 1.8 mg/dL (1.6-2.4) 04/18/23 05:30 Albumin 2.9 g/dL (3.4-5.0) L 04/18/23 05:30 Prealbumin 15.9 mg/dL (20-40) L 04/18/23 05:30 Urine Color Yellow (Yellow) 04/16/23 15:20 Urine Clarity Extremely turbid (Clear) H 04/16/23 15:20 Urine pH 6.0 (5.0-7.0) 04/16/23 15:20 Ur Specific [place] 1.021 (1.005-1.030) 04/16/23 15:20 Glucose (UA)(Auto) Negative (Negative) 04/16/23 15:20 Urine Ketones Trace (Negative) H 04/16/23 15:20 Urine Blood 3+ (Negative) H 04/16/23 15:20 Urine Nitrite Negative (Negative) 04/16/23 15:20 Urine Bilirubin Negative (Negative) 04/16/23 15:20 Urine Urobilinogen 1+ (Normal) H 04/16/23 15:20 Ur Leukocyte Esterase 500 Arvind/uL (Negative) H 04/16/23 15:20 Urine RBC >50 /HPF (None Seen) H 04/16/23 15:20 Urine WBC >50 /HPF (<5) H 04/16/23 15:20 Urine WBC Clumps Occasional /HPF (None Seen) H 04/16/23 15:20 Ur Squamous Epith Cells <5 /HPF (None Seen) 04/16/23 15:20 U Non-Squamous Epi Cells <5 /HPF (None Seen) 04/16/23 15:20 Unidentified Crystals Few /HPF (None Seen) 04/16/23 15:20 Urine Bacteria <20 /HPF (<20) 04/16/23 15:20 Hyaline Casts 10-20 /LPF (None Seen) H 04/16/23 15:20 Urine Mucus 2+ /HPF (None Seen) 04/16/23 15:20 Urine Culture Reflexed Reflexed 04/16/23 15:20 Urine Total Protein 2+ (Negative) H 04/16/23 15:20 Weight: 180 lb Wound Present: No Closed Surgical Incision Present: Yes Negative Pressure Wound Therapy Present: No Physician Update: Labs reviewed and are stable. Mild malnutrition with prealbumin 15.9. BIMA 13. Pain is managed with gabapentin and [place]. Met all go als. RW 750' with independence. All ADLs independent. Ready for discharge today. Summary: Patient's care plan and long-term goals have been reviewed and revised as necessary. Please see the Rehabilitation Signature page for all necessary signatures.
== END 2023-04-19 15:15 | disposition home health service (06) | DRG 561 ==
LOC: 5TH 11:30
PROVIDERS: ADMIT Psychiatry & Neurology Neurology with Special Qualifications in Child Neurology; ATTEND Psychiatry & Neurology Neurology with Special Qualifications in Child Neurology
PROC: 0HBRXZZ Excision of Toe Nail, External Approach (ICD-10-PCS; principal; 2023-04-15)
PROC: 0HBRXZZ Excision of Toe Nail, External Approach (ICD-10-PCS; 2023-04-15)
PROC: 0HBRXZZ Excision of Toe Nail, External Approach (ICD-10-PCS; 2023-04-15)
PROC: 0HBRXZZ Excision of Toe Nail, External Approach (ICD-10-PCS; 2023-04-15)
PROC: 0HBRXZZ Excision of Toe Nail, External Approach (ICD-10-PCS; 2023-04-15)
PROC: 0HBRXZZ Excision of Toe Nail, External Approach (ICD-10-PCS; 2023-04-15)
PROC: 0HBRXZZ Excision of Toe Nail, External Approach (ICD-10-PCS; 2023-04-15)
PROC: 0HBRXZZ Excision of Toe Nail, External Approach (ICD-10-PCS; 2023-04-15)
PROC: 0HBRXZZ Excision of Toe Nail, External Approach (ICD-10-PCS; 2023-04-15)
PROC: 0HBRXZZ Excision of Toe Nail, External Approach (ICD-10-PCS; 2023-04-15)
DX: Z47.1 Aftercare following joint replacement surgery (principal); I10 Essential (primary) hypertension; E78.5 Hyperlipidemia, unspecified; I25.10 Atherosclerotic heart disease of native coronary artery without angina pectoris; E87.6 Hypokalemia; D64.9 Anemia, unspecified; D69.6 Thrombocytopenia, unspecified; K59.00 Constipation, unspecified; B35.1 Tinea unguium; E11.51 Type 2 diabetes mellitus with diabetic peripheral angiopathy without gangrene; Z85.51 Personal history of malignant neoplasm of bladder; Z79.01 Long term (current) use of anticoagulants; E03.9 Hypothyroidism, unspecified
CPT/HCPCS: 36415; 80048; 81001; 82040; 82947; 83735; 84134; 85025; 87077; 87086; 87088; 87186; 97110; 97112; 97116; 97163; 97165; 97530; 97542; J1815

== ENCOUNTER → 2023-04-28 | Emergency (ER) | payer OTHER ==
[~2023-04-28] MED LIST: ACETAMINOPHEN 325 MG TABLET ONE; CEFEPIME 1 GM/VIAL ONE; NA CHLORIDE 0.9% 2,000 ML ONE; ONDANSETRON 4 MG/2 ML VIAL ONE
--- OUTSIDE RECORDS SUMMARY | 2023-04-28 16:46 | XMS REPORT | Clinical Summary ---
Author Name Unknown Organization [facility] Address [address] [place] [address] Care Team Providers Care Assurance Services Manager Health Care Name Role Phone Georgette Campos MD Primary Care Provider [phone] Obdulia Gilmore MD Unavailable Allergies Active Allergy [...] Active Problems Problem Noted Date Diagnosed Date half-way current use of insulin 10/08/2018 Other specified [...] Overview: Added automatically from request for surgery [id number] Mass of urinary bladder 08/20/2018 Overview: Added automatically from request for surgery [id number] Hypertension 02/12/2008 Overview: Controled by medication BP [...] negative for stress-induced ischemia Cleared by local stable helper for surgery Last Assessment & Plan: Hold Plavix 1 week prior to surgery Continue aspirin 81 mg daily through surgery Continue atorvastatin 40 mg nightly through surgery Encounters Date Type Department Care Team Description 01/24/2023 12:00 PM ELEVATOR REPAIR MECHANIC Telemedicine [facility] [address] [facility], 7th [place] [address] Georgette Campos MD Bladder cancer (Primary Dx) 01/23/2023 11:40 AM ELEVATOR REPAIR MECHANIC Ancillary Procedure CT Imaging [address] [facility], [address] [place] [address] Georgette Campos MD Bladder cancer 01/23/2023 11:00 AM ELEVATOR REPAIR MECHANIC Ancillary Procedure [facility] [address] [place] [address] Georgette Campos MD Bladder cancer 01/23/2023 10:00 AM ELEVATOR REPAIR MECHANIC - 01/23/2023 11:59 PM ELEVATOR REPAIR MECHANIC Hospital Encounter [facility] [address] [place] [address] Georgette Campos MD Bladder cancer Discharge Disposition: Home after 04/28/2022 Immunizations Name Administration Dates Next Due Pfizer SARS-CoV-2 Vaccination (Purple Cap) 11/17 Pfizer SARS-CoV-2 Vaccination 5-11 y.o. 04/04/19 21,03/14/2020 Surgical History Surgery Date Site/Laterality Comments BACK SURGERY 02/11/1971 - 02/11/1972 COLONOSCOPY 1999, 2009, 2018 PROSTATE SURGERY 2003 TURP VA CYSTOURETHROSCOPY W/DEST &/RMVL TUMOR LARGE 08/22/2018 Genitalia/Left Procedure: CYSTOURETHROSCOPY WITH FULGURATION AND/OR TREATMENT OF LARGE LESION(S) (>5.0 CM); Surgeon: Georgette Campos MD; Location: [facility]; Service: UROLOGY VA PELVIC EXAMINATION W/ANESTHESIA OTHER THAN LOCAL 08/22/2018 Bladder/N/A Procedure: PELVIC EXAMINATION UNDER ANESTHESIA; Surgeon: Georgette Campos MD; Location: [facility]; Service: UROLOGY CORONARY ANGIOPLASTY WITH STENT PLACEMENT 02/11/2014 - 02/10/2015 5 stents. VA UNLISTED LAPAROSCOPY PROCEDURE BLADDER 10/07/2018 Abdomen/N/A Procedure: ROBOTIC ASSISTED COMPLETE CYSTECTOMY with prostatectomy; Surgeon: Georgette Campos MD; Location: [facility] OR; Service: UROLOGY VA URETEROILEAL CONDUIT W/INTESTINE ANASTOMOSIS 10/07/2018 N/A Procedure: ROBOTIC ASSISTED URINARY DIVERSION-ILEAL CONDUIT; Surgeon: Georgette Campos MD; Location: MAIN OR; Service: UROLOGY VA LAPS SURG BILATERAL TOTAL PELVIC LMPHADECTOMY 10/07/2018 [...] Comments Blood Pressure 144/86 01/23/2023 3:45 PM ELEVATOR REPAIR MECHANIC Pulse 69 01/23/2023 3:45 PM ELEVATOR REPAIR MECHANIC Temperature - - Respiratory Rate 16 01/23/2023 2:28 PM ELEVATOR REPAIR MECHANIC Oxygen Saturation 99% 01/23/2023 3:45 PM ELEVATOR REPAIR MECHANIC Inhaled Oxygen Concentration - - Weight - - Height - - Body Mass Index - - Plan of Treatment Upcoming Encounters Date Type Department Care Team Description 01/22/2024 9:45 AM ELEVATOR REPAIR MECHANIC Ancillary Procedure Diagnostic Center [address] [facility], 2nd [place] [address] Georgette Campos MD [address] [place], [place] [id number] 01/22/2024 10:00 AM ELEVATOR REPAIR MECHANIC Appointment Diagnostic [facility] [address] [place] [address] Georgette Campos MD [address] [place] [address] 01/22/2024 10:45 AM ELEVATOR REPAIR MECHANIC Ancillary Procedure CT Imaging [address] [place] [address], 7th [place] [address] Georgette Campos MD [address] [place] [address] 01/23/2024 2:00 PM ELEVATOR REPAIR MECHANIC Telemedicine [facility] [address] [place] [address], 7th [place] [address] Georgette Campos MD [address] [place] [address] Health Maintenance Due Date Last Done Comments COVID-19 Vaccine (2022- 4 season) 2022 02/14/2022, 06/12/2021, 11/17/2020, Additional history exists Influenza Vaccine Completed 12/05/2022, , 11/10/2020, Additional history exists Procedures Procedure Name Priority Date/Time Associated Diagnosis Comments CT ABDOMEN PELVIS W WO CONTRAST UROGRAM Routine 01/23/2023 3:42 PM ELEVATOR REPAIR MECHANIC Bladder cancer XR CHEST 2 VW Routine 01/23/2023 10:34 AM ELEVATOR REPAIR MECHANIC Bladder cancer .CBC Routine 01/23/2023 10:13 AM ELEVATOR REPAIR MECHANIC Bladder cancer PROSTATE SPECIFIC ANTIGEN Routine 01/23/2023 10:13 AM ELEVATOR REPAIR MECHANIC Bladder cancer COMPLETE BLOOD COUNT W/ DIFFERENTIAL Routine 01/23/2023 10:13 AM ELEVATOR REPAIR MECHANIC Bladder cancer COMPREHENSIVE METABOLIC PANEL Routine 01/23/2023 10:13 AM ELEVATOR REPAIR MECHANIC Bladder cancer after 04/28/2022 Results * CT Abdomen Pelvis with and without Contrast Urogram (01/23/2023 3:42 PM ELEVATOR REPAIR MECHANIC) Anatomical Region Laterality Modality Abdomen, Pelvis Computed Tomogra phy 01/23/2023 11:4 7 PM ELEVATOR REPAIR MECHANIC Impressions 01/23/2023 11:55 PM ELEVATOR REPAIR MECHANIC Stable examination with no evidence of recurrence or metastatic disease in the abdomen or pelvis. No suspicious upper tract urothelial lesion. Stable postsurgical changes of cystoprostatectomy with right lower quadrant ileal urinary conduit. ACTIONABLE ITEMS/RECOMMENDATIONS: None. Narrative 01/23/2023 11:55 PM ELEVATOR REPAIR MECHANIC Examination: CT ABDOMEN PELVIS W WO CONTRAST [...] X-ray Chest 2 Views (01/23/2023 10:34 AM ELEVATOR REPAIR MECHANIC) Anatomical Region Laterality Modality Chest Digital Radiogra phy 01/23/2023 10:3 5 AM ELEVATOR REPAIR MECHANIC Impressions 01/23/2023 10:39 AM ELEVATOR REPAIR MECHANIC No acute findings or metastatic disease in the chest. ACTIONABLE ITEMS/RECOMMENDATIONS: None. Narrative 01/23/2023 10:39 AM ELEVATOR REPAIR MECHANIC FULL RESULT: Examination: XR CHEST 2 VW [...] chest. ACTIONABLE ITEMS/RECOMMENDATIONS: None. Georgette Campos MD IMG DIAGNOSTIC IMAGI NG ORDERABLES * (ABNORMAL) .CBC (01/23/2023 10:13 AM [facility]) Pathologist [facility] White Blood Cell 8.0 4.1 - 10.5 K/uL 01/23/2023 10:28 AM [facility] Red Blood Cell 4.59 4.30 - 6.04 M/uL 01/23/2023 10:28 AM [facility] Hemoglobin 14.4 13.3 - 17.4 g/dL 01/23/2023 10:28 AM [facility] Hematocrit 42.2 39.5 - 51.8 % 01/23/2023 10:28 AM [facility] Mean Cell Volume 92 82 - 99 fL 01/23/2023 10:28 AM [facility] Mean Cell Hemoglobin 31.4 26.6 - 33.2 pg 01/23/2023 10:28 AM [facility] Mean Cell Hemoglobin Concentration 34.1 31.1 - 35.2 g/dL 01/23/2023 10:28 AM [facility] RDW-SD 44.6 37.5 - 49.7 fL 01/23/2023 10:28 AM [facility] Red Cell Diameter Width 13.2 11.6 - 15.5 % 01/23/2023 10:28 AM [facility] Platelet 205 160 - 397 K/uL 01/23/2023 10:28 AM [facility] Mean Platelet Volume 10.5 9.1 - 12.6 fL 01/23/2023 10:28 AM [facility] INRBC 0.0 0.0 - 0.1 /100 WBC 01/23/2023 10:28 AM [facility] Comment: The INRBC (instrument NRBC) value reflects the enumeration of nucleated red blood cells contained in a 200uL sample of whole blood analyzed by the instrument. This value may differ from the NRBC value reported in a manual differential, which is based on a 100 cell differential. Neutrophil % 67.9 43.2 - 72.7 % 01/23/2023 10:28 AM [facility] Lymphocyte % 14.8(L) 16.8 - 46.2 % 01/23/2023 10:28 AM [facility] Monocyte % 11.4 5.1 - 12.5 % 01/23/2023 10:28 AM [facility] Eosinophil % 4.6 0.4 - 6.3 % 01/23/2023 10:28 AM [facility] Basophil % 0.9 0.2 - 1.4 % 01/23/2023 10:28 AM [facility] IGRE % 0.4 0.1 - 1.5 % 01/23/2023 10:28 AM [facility] Comment:The IGRE% includes M etamyelocytes, Myelocytes and Promyelocytes. Neutrophil Abs 5.44 1.95 - 7.25 K/uL 01/23/2023 10:28 AM [facility] Lymphocyte Abs 1.18 1.01 - 3.24 K/uL 01/23/2023 10:28 AM [facility] Monocyte Abs 0.91(H) 0.24 - 0.85 K/uL 01/23/2023 10:28 AM [facility] Eosinophil Abs 0.37 0.02 - 0.50 K/uL 01/23/2023 10:28 AM [facility] Basophil Abs 0.07 0.02 - 0.09 K/uL 01/23/2023 10:28 AM [facility] IG Abs 0.03 0.01 - 0.12 K/uL 01/23/2023 10:28 AM [facility] Blood Venipuncture / Unknown 01/23/2023 10:13 AM [facility] 01/23/2023 10:18 AM [facility] Georgette Campos MD LAB BLOOD ORDERABLES [facility] [address] [facility] [place] [address] * (ABNORMAL) Comprehensive Metabolic Panel (01/23/2023 10:13 AM [facility]) Bilirubin Total 0.8 <=1.2 mg/dL 01/23/2023 10:56 AM [facility] Comment: Indocyanine Green (ICG) may cause falsely elevated bilirubin results. Total and direct bilirubin must not be measured from samples containing indocyanine green. False elevation of total bilirubin can be seen in patients with IgG concentrations above 28 g/L. This result was previously suppressed from the chart. Bilirubin Direct 0.2 <=0.3 mg/dL 01/23/2023 10:56 AM [facility] Comment: Indocyanine Green (ICG) may cause falsely elevated bilirubin results. Total and direct bilirubin must not be measured from samples containing indocyanine green. This result was previously suppressed from the chart. Bilirubin Indirect 0.6 0.0 - 0.9 mg/dL 01/23/2023 10:56 AM [facility] Comment:This result was prev iously suppressed from the chart. eGFR 68 >=60 mL/min/1. 73 sq. m 01/23/2023 10:56 AM [facility] Comment: The eGFRcr is calculated with the [...] 6.4 - 8.3 gm/dL 01/23/2023 10:56 AM [facility] Comment:This result was prev iously suppressed from the chart. Calcium Level Total 9.5 8.2 - 10.2 mg/dL 01/23/2023 10:56 AM [facility] Comment:This result was prev iously suppressed from the chart. Alkaline Phosphatase 93 40 - 129 U/L 01/23/2023 10:56 AM [facility] Comment:This result was prev iously suppressed from the chart. Albumin Level 4.7 3.5 - 5.2 gm/dL 01/23/2023 10:56 AM [facility] Comment:This result was prev iously suppressed from the chart. AST 20 <=40 U/L 01/23/2023 10:56 AM [facility] Comment:This result was prev iously suppressed from the chart. ALT 15 <=41 U/L 01/23/2023 10:56 AM [facility] Comment:This result was prev iously suppressed from the chart. Sodium Level 138 136 - 145 mmol/L 01/23/2023 10:56 AM [facility]:This result was prev iously suppressed from the chart. Potassium Level 4.6(H) 3.4 - 4.5 mmol/L 01/23/2023 10:56 AM [facility] Comment:This result was prev iously suppressed from the chart. Chloride 100 98 - 107 mmol/L 01/23/2023 10:56 AM [facility] Comment:This result was prev iously suppressed from the chart. CO2 24 22 - 29 mmol/L 01/23/2023 10:56 AM [facility] Comment:This result was prev iously suppressed from the chart. Anion Gap 14 4 - 14 mmol/L 01/23/2023 10:56 AM [facility] Comment:This result was prev iously suppressed from the chart. Creatinine 1.10 0.67 - 1.17 mg/dL 01/23/2023 10:56 AM [facility] Comment:This result was prev iously suppressed from the chart. BUN 16 6 - 23 mg/dL 01/23/2023 10:56 AM [facility] Comment:This result was prev iously suppressed from the chart. Glucose Level 155(H) 70 - 99 mg/dL 01/23/2023 10:56 AM [facility] Comment: Effective 09/07/15, the glucose reference intervals have been updated based on [place] [employer] guidelines (Standards of Medical Care [...] Blood Venipuncture / Unknown 01/23/2023 10:13 AM ELEVATOR REPAIR MECHANIC 01/23/2023 10:19 AM ELEVATOR REPAIR MECHANIC Georgette Campos MD LAB BLOOD ORDERABLES Performing Organization Address [facility] Co de Phone Number [facility] [address] [place] [address]. [address] [place] [address] * PSA (01/23/2023 10:13 AM ELEVATOR REPAIR MECHANIC) Prostate Specific Antigen <0.1 0.0 - 4.0 ng/mL 01/23/2023 11:10 AM [facility] Comment: "Reference range established based on adult population Results greater than 4519 ng/mL may not be reliable due to matrix effect with extended dilution as it exceeds the service agent's recommended limit. Caution should be exercised when interpreting such values and done in conjunction with clinical context. PSA Indication Diagnostic 01/23/2023 11:10 AM [facility] Blood Venipuncture / Unknown 01/23/2023 10:13 AM ELEVATOR REPAIR MECHANIC 01/23/2023 10:19 AM ELEVATOR REPAIR MECHANIC Georgette Campos MD LAB BLOOD ORDERABLES Performing Organization Address City/[facility] Co de Phone Number [facility] [address] [place] [address]. [address] [place] [address] after 04/28/2022 Advance Directives Latest Code Status on File Code Status Date Activated Date Inactivated Comments Full Code 10/07/2018 1:47 PM 10/11/2018 5:04 PM Code Status History Code Status Date Activated Date Inactivated Comments Full Code 08/22/2018 5:39 PM 08/22/2018 9:59 PM Care Teams Assurance Services Manager Health Care Relationship Specialty Start Date End Date Georgette Campos MD [address] [place] [id number] PCP - General Urology 08/08/18 Obdulia Gilmore MD [address] [place] [id number] Consulting Physician Internal Medicine 10/02/18
[2023-04-28 17:50] LABS: Absolute Basophils 0.2 K/uL (0-0.5); Absolute Eosinophils 0.1 K/uL (0-0.5); Absolute Lymphocytes (CBC) 0.6 K/uL (0.7-4.9); Absolute Monocytes 1.9 K/uL (0.1-1.3); Absolute Neutrophil 20.2 K/uL (1.8-8.0); Basophils % 0.7 % (0-1.3); Eosinophils % 0.5 % (0-4.4); Hematocrit 33.2 % (39.6-49.0); Hemoglobin 11.4 g/dL (13.6-17.9); Lymphocytes % 2.4 % (15.3-44.8); MCH 30.5 pg (27.0-35.0); MCHC 34.2 g/dL (32.0-36.0); MCV 89.2 fL (80-100); MPV 7.7 fL (7.6-11.3); Monocytes % 8.4 % (3.3-12.3); Platelets 343 thou/uL (152-406); RBC Red Blood Cell Count 3.72 M/uL (4.33-5.43); Red Cell Distribution Width 14.8 % (12.1-15.2)
[2023-04-28 18:08] LABS: Albumin 3.1 g/dL (3.4-5.0); Albumin/Globulin Ratio 0.9 (1.1-1.8); Anion Gap 15.4 mEq/L (5.0-15.0); Bilirubin Total 0.8 mg/dL (0.2-1.0); Globulin 3.6 g/dL (2.3-3.5); Potassium 4.4 mEq/L (3.5-5.1); Protein, Total 6.7 g/dL (6.4-8.2)
[2023-04-28 18:22] LABS: PT Prothrombin Time 13.4 SECONDS (9.5-12.5); PTT, Activated Partial Thromb 31.1 SECONDS (24.3-36.9); Protime INR 1.23
[2023-04-28 18:56] LABS: Specific Gravity 1.021 (1.005-1.030); Sqamous Epithelial <5 /HPF (None Seen); Urine Bacteria 20-50 /HPF (<20); Urine Bilirubin NEGATIVE (Negative); Urine Blood 2+ (Negative); Urine Clarity Extremely Turbid (Clear); Urine Color Yellow (Yellow); Urine Culture Reflex Order REFLEXED; Urine Glucose NEGATIVE (Negative); Urine Ketones 1+ (Negative); Urine Microscopic Reflex YN ORDER UMIC; Urine Mucus 1+ /HPF (None Seen); Urine Nitrite NEGATIVE (Negative); Urine Protein 1+ (Negative); Urine RBC 21-50 /HPF (None Seen); Urine Urobilinogen 1+ (Normal); Urine WBC >50 /HPF (<5)
--- NOTE | 2023-04-28 19:46 | RAD REPORT ---
EXAM DESCRIPTION: CT - Hip Left Wo Con - 04/28/2023 7:14 pm CLINICAL HISTORY: r/o infection; recent replacement COMPARISON: No comparisons TECHNIQUE: Thin cut axial CT imaging of the left hip was performed without IV contrast. Multiplanar reformats were generated and reviewed. All CT scans are performed using dose optimization technique as appropriate and may include automated exposure control or mA/KV adjustment according to patient size. FINDINGS: Sequelae of left total hip arthroplasty. Streak artifact resulting from the hip arthroplas ty hardware limits evaluation. Components in satisfactory alignment without evidence of complications . Moderate edematous changes along the left flank subcutaneous soft tissues and upper thigh with overly ing skin thickening. Ill-defined accumulation of fluid along the surgical tract extending along the a nterior hip/thigh musculature, measuring up to 1.4 cm in thickness. Ill-defined fluid accumulation, o void in appearance, measuring 4.0 x 1.7 cm in greatest axial dimensions in the deep subcutaneous soft tissues just superficial to the deep fascia, at the level of the superior acetabulum. 1 cm adjacent gas locule. The visualized pelvic structures are unremarkable. Degenerative changes at the lumbosacral junction. IMPRESSION: Ill-defined fluid accumulation along the left hip arthroplasty surgical tract up to 1.4 cm in thickness. Ill-defined 4.0 x 1.7 cm fluid collection in the overlying deep subcutaneous soft ti ssues with focus of adjacent soft tissue gas may represent a residual seroma. Possibility of superimp osed infection would be difficult to exclude Fairly extensive edematous changes along the left flank subcutaneous soft tissues and upper thigh cou ld relate to cellulitis. .
--- NOTE | 2023-04-28 20:15 | ER ---
Nurse's Notes [facility] Name: Akshat Acuna Age: 82 yrs Sex: Male : 1940 Arrival Date: 04/28/2023 Time: 16:42 Bed 6 Private MD: Diagnosis: Severe sepsis with septic shock;UTI/ Urinary tract infection, site not specified;Infected seroma with possible abscess s/p left hip replacement Presentation: 04/27 16:51 Chief complaint: reports intermittent confusion, generalized weakness, and fever x hb 2 days. Pt is 2 weeks s/p hip replacement. Coronavirus screen: At this time, the client does not indicate any symptoms associated with coronavirus-19. Ebola Screen: No symptoms or risks identified at this time. Initial Sepsis Screen: Does the patient meet any 2 criteria? No. Patient's initial sepsis screen is negative. Does the patient have a suspected source of infection? No. Patient's initial sepsis screen is negative. Risk Assessment: Do you want to hurt yourself or someone else? Patient reports no desire to harm self or others. Onset of symptoms was April 27, 2023. 16:51 Method Of Arrival: Ambulatory hb 16:51 Acuity: AGA 2 hb Triage Assessment: 16:55 General: Appears in no apparent distress. Behavior is calm, cooperative. Pain: Pain hb currently is 2 out of 10 on a pain scale. Neuro: Level of Consciousness is awake, alert, obeys commands, Oriented to person, place, time, situation. Cardiovascular: Patient's skin is warm and dry. Respiratory: Respiratory effort is even, unlabored, Respiratory pattern is regular, symmetrical. GI: Reports nausea. Derm: Skin is intact, Skin is dry, Skin is pale. Musculoskeletal: Reports left hip pain r/t recent hip replacement. Historical: - Allergies: 16:55 Codeine; hb - PMHx: 16:55 diabetes mellitus; Hypertensive disorder; Myocardial infarction; hb - Immunization history:: Adult Immunizations up to date. - Social history:: Smoking status: Patient denies any tobacco usage or history of. Screenin:00 [facility] ED Fall Risk Assessment (Adult) History of falling in the last 3 months, rs5 including since admission No falls in past 3 months (0 pts) Confusion or Disorientation No (0 pts) Intoxicated or Sedated No (0 pts) Impaired Gait No (0 pts) Mobility Assist Device Used No (0 pt) Altered Elimination No (0 pt) Score/Fall Risk Level 0 - 2 = Low Risk Oriented to surroundings, Maintained a safe environment. Abuse screen: Denies threats or abuse. Nutritional screening: No deficits noted. Tuberculosis screening: No symptoms or risk factors identified. Assessment: 17:00 General: Appears in no apparent distress. comfortable, Behavior is calm, cooperative. rs5 Pain: Denies pain. Neuro: Level of Consciousness is awake, alert, obeys commands, Oriented to person, place, time, situation. Cardiovascular: Rhythm is regular. Respiratory: Airway is patent Respiratory effort is even, unlabored, Respiratory pattern is regular, symmetrical. GI: Abdomen is round non-distended, Abd is soft and non tender X 4 quads. GI: pt has urostomy in place, 100 ml clear yellow urine drained from bag. : No signs and/or symptoms were reported regarding the genitourinary system. EENT: No signs and/or symptoms were reported regarding the EENT system. Derm: Skin is intact, Skin is pink, warm \\T\\ dry. Musculoskeletal: Circulation, motion, and sensation intact. Range of motion: intact in all extremities. 17:00 Reassessment: at bedside states "he becomes a bit disorientated intermittently, rs5 for example once he started using a remote control as a telephone" . 18:01 Reassessment: No changes from previously documented assessment. rs5 19:10 Reassessment: Patient and/or family updated on plan of care and expected duration. Pain rs5 level reassessed. Patient is alert, oriented x 3, equal unlabored respirations, skin warm/dry/pink. 19:20 Reassessment: Patient is alert, oriented x 3, equal unlabored respirations, skin as9 warm/dry/pink. 19:20 General: Appears in no apparent distress. comfortable, Behavior is calm, cooperative. as9 Pain: Denies pain. Neuro: Level of Consciousness is awake, alert, obeys commands, Oriented to person, place, situation. Cardiovascular: Capillary refill < 3 seconds Patient's skin is warm and dry. Respiratory: Airway is patent Respiratory effort is even, unlabored, Respiratory pattern is regular, symmetrical. GI: Abdomen is round non-distended. : No signs and/or symptoms were reported regarding the genitourinary system. EENT: No signs and/or symptoms were reported regarding the EENT system. Derm: Skin is intact, Skin is pink, warm \\T\\ dry. Musculoskeletal: Circulation, motion, and sensation intact. Range of motion: intact in all extremities. 20:00 Reassessment: Patient appears in no apparent distress at this time. No changes from vc1 previously documented assessment. Patient and/or family updated on plan of care and expected duration. Pain level reassessed. Patient is alert, oriented x 3, equal unlabored respirations, skin warm/dry/pink. 21:00 Reassessment: Patient appears in no apparent distress at this time. No changes from vc1 previously documented assessment. Patient and/or family updated on plan of care and expected duration. Pain level reassessed. Patient is alert, oriented x 3, equal unlabored respirations, skin warm/dry/pink. 22:00 Reassessment: Patient appears in no apparent distress at this time. No changes from vc1 previously documented assessment. Patient and/or family updated on plan of care and expected duration. Pain level reassessed. Patient is alert, oriented x 3, equal unlabored respirations, skin warm/dry/pink. 23:00 Reassessment: Patient appears in no apparent distress at this time. No changes from vc1 previously documented assessment. Patient and/or family updated on plan of care and expected duration. Pain level reassessed. Patient is alert, oriented x 3, equal unlabored respirations, skin warm/dry/pink. 04/28 00:00 Reassessment: Patient appears in no apparent distress at this time. No changes from vc1 previously documented assessment. Patient and/or family updated on plan of care and expected duration. Pain level reassessed. Patient is alert, oriented x 3, equal unlabored respirations, skin warm/dry/pink. Vital Signs: 04/27 16:51 BP 107 / 53; Pulse 93; Resp 18; Temp 99.1(O); Weight 86.18 kg; Height 5 ft. 11 in. ; hb Pain 2/10; 20:06 BP 150 / 85; Pulse 107; Resp 20; Temp 100.7; Pulse Ox 97% on R/A; as9 20:30 BP 134 / 65; Pulse 103; Resp 20; Pulse Ox 94% on R/A; as9 21:30 BP 125 / 64; Pulse 103; Resp 20; Pulse Ox 94% on R/A; as9 22:00 BP 113 / 61; Pulse 101; Resp 20; Pulse Ox 94% on R/A; as9 22:30 BP 115 / 60; Pulse 95; Resp 20; Temp 100.9; Pulse Ox 98% on R/A; as9 23:30 BP 112 / 67; Pulse 89; Resp 20; Pulse Ox 98% ; vc1 03 00:00 BP 104 / 61; Pulse 74; Resp 20; Pulse Ox 97% ; vc1 00:00 BP 104 / 61; Pulse 87; Resp 20; Temp 99.7; Pulse Ox 94% on R/A; as9 04/27 16:51 Body Mass Index 26.50 (86.18 kg, 180.34 cm) hb 04/27 16:51 Pain Scale: Adult hb ED Course: 04/27 16:47 Patient arrived in ED. mg5 16:55 Triage completed. hb 16:56 Arm band placed on. hb 16:57 Mayela Asif FNP-C is PHCP. kb 16:57 Amparo Pinto MD is Attending Physician. kb 17:00 Patient has correct armband on for positive identification. Placed in gown. Bed in low rs5 position. Call light in reach. Side rails up X2. 17:00 No provider procedures requiring assistance completed. rs5 17:06 Mike Metzger, RN is Primary Nurse. bp 17:50 Blood Culture Adult (2) Sent. bp 17:50 CBC with Diff Sent. bp 17:50 CMP Sent. bp 17:50 Lactate w/ 2H reflex if indic. Sent. bp 17:50 Protime (+inr) Sent. bp 17:50 Ptt, Activated Sent. bp 19:00 Inserted saline lock: 20 gauge in right antecubital area, using aseptic technique. as9 19:16 Hip Left Wo Con In Process Unspecified. EDMS 19:58 Initiated transfer with Ochoa. kmf 20:20 Ochoa called back no beds at [facility], [facility] and [facility]. kmf 20:44 Ochoa called back, no beds at [place] or [place]. kmf 20:55 Mayela asked to pause pt transfer. kmf 21:[address] keys. kmf 22:08 Dr Church spoke with Mayela on Pt acceptance. [facility] 22:37 Mayela spoke with Ochoa regarding Gnosticism pt refusal. [facility] let us know that Dr. neetu Church does not hold ICU capabilities since he is with [facility]. Raul requested to speak with the doctor clip on sunglasses assembler. 22:[address] Ila Rayo Fax pt facesheet for bed assignment. [facility] 22:58 pt will go to [place] [id number]. Admin approval given by Viridiana Cerrato [facility] Maya8. Number for nurse to nurse report [phone]. 04/28 01:18 Patient transferred, IV remains in place. vc1 Administered Medications: 04/27 18:44 Drug: NS 0.9% IV (30 ml/kg) 30 ml/kg IV at bolus once; Sepsis Protocol Route: IV; Rate: bp bolus; Site: right antecubital; 04/28 00:24 Follow up: IV Status: Completed infusion; IV Intake: 2545ml vc1 04/27 18:45 Drug: Cefepime IVPB 1 grams IVPB at 200 ml/hr once over 30 mins; (mix in NS 100 mL) bp Route: IVPB; Rate: 200 ml/hr; Infused Over: 30 mins; Site: right antecubital; 19:45 Follow up: IV Status: Completed infusion; IV Intake: 100ml vc1 20:37 Drug: Ondansetron IVP 4 mg IVP once; over 2 minutes Route: IVP; Site: right antecubital;as9 22:36 Follow up: Response: No adverse reaction; Marked relief of symptoms as9 22:51 Drug: Acetaminophen PO 650 mg PO once Route: PO; as9 04/28 00:24 Follow up: Response: No adverse reaction; Temperature is decreased as9 Medication: 04/27 19:11 VIS not applicable for this client. rs5 Intake: 19:45 IV: 100ml; Total: 100ml. vc1 04/28 00:24 IV: 2545ml; Total: 2645ml. vc1 Outcome: 04/27 20:15 ER care complete, transfer ordered by MD. garcia 04/28 01:17 Transferred by ground EMS to [facility], Transfer form completed. X-rays vc1 sent w/ patient. Note: [facility] Condition: good Instructed on the need for transfer, 01:18 Patient left the ED. vc1 Addendum: 04/30/2023 06:22 Addendum: Culture Results: Positive blood culture. Notified SILVIA Olmstead at [address] of +gram negative rods of anaerobic and aerobic bottles. Signatures: Dispatcher [employer] EDMS Mayela Asif, CHANNEL SPECIALIST-C CHANNEL SPECIALIST-Ckb Clarice Francisco, RN RN Mike Metzger RN RN bp Cinthya Marino RN RN vc1 Maddie Leo, SILVIA RN pf1 Pipe Prater RN RN 5 Mely Zarco [facility] Chayito Farmer [facility] Alfonso Aguirre RN RN as9 Corrections: (The following items were deleted from the chart) 04/27 16:57 16:51 Acuity: AGA 3 hb hb 04/28 00:30 04/27 23:37 Mayela spoke with Ochoa regarding Gnosticism pt refusal. Ochoa let us [facility] know that Dr. Cuhrch does not hold ICU capabilities since he is with [facility]. Krgloria requested to speak with the doctor clip on sunglasses assembler. [facility] 04/28 00:31 04/27 22:37 Dr Church spoke with Mayela on Pt acceptance [facility] 04/28 01:31 04/27 22:37 Mayela spoke with Ochoa regarding Gnosticism pt refusal. Ochoa let us [facility] know that Dr. Church does not hold ICU capabilities since he is with [facility]. Krisitin requested to speak with the doctor clip on sunglasses assembler. [facility] 04/28 01:34 04/27 22:45 pt accepted by susan su [facility]
--- NOTE | 2023-04-28 20:15 | EDPHYS ---
Physician Documentation [facility] Name: Akshat Acuna Age: 82 yrs Sex: Male : 1940 Arrival Date: 04/28/2023 Time: 16:42 Bed 6 Private MD: ED Physician Amparo Pinto HPI: 04/27 17:49 This 82 yrs old Unknown Male presents to ER via Ambulatory with complaints of Fever, kb Altered Mental Status. 17:49 Pt is an 82 year old male who was brought in by his for hallucinations that kb started today. States pt hasn't been feeling well over the last 2 days, had fever of 99 yesterday and 100 today. Reports nausea, denies vomiting, diarrhea, abd pain. states pt was talking to the remote control like it was a phone and told her he ordered food. 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 Pt had left hip replacement 2 weeks ago at [facility] and has had no problems postop. Historical: - Allergies: 16:55 Codeine; hb - PMHx: 16:55 diabetes mellitus; Hypertensive disorder; Myocardial infarction; hb - Immunization history:: Adult Immunizations up to date. - Social history:: Smoking status: Patient denies any tobacco usage or history of. ROS: 17:07 Constitutional: As per HPI kb Exam: 17:07 Constitutional: This is a well developed, well nourished patient who is awake, alert, kb and in no acute distress. Head/Face: Normocephalic, atraumatic. ENT: Moist Mucous membranes Cardiovascular: Regular rate Respiratory: Respirations even and unlabored. No increased work of breathing. Talking in full sentences Abdomen/GI: Soft, non-tender. No distention, urostomy Skin: Warm, dry with normal turgor. Normal color. Edema and erythema to left hip, surgical incision without drainage or dehiscence MS/ Extremity: Pulses equal, no cyanosis. Neurovascular intact. Full, normal range of motion. Neuro: Awake and alert, GCS 15, oriented to person, place, time, and situation. Moves all extremities. Normal gait. Vital Signs: 16:51 BP 107 / 53; Pulse 93; Resp 18; Temp 99.1(O); Weight 86.18 kg; Height 5 ft. 11 in. ; hb Pain 2/10; 20:06 BP 150 / 85; Pulse 107; Resp 20; Temp 100.7; Pulse Ox 97% on R/A; as9 20:30 BP 134 / 65; Pulse 103; Resp 20; Pulse Ox 94% on R/A; as9 21:30 BP 125 / 64; Pulse 103; Resp 20; Pulse Ox 94% on R/A; as9 22:00 BP 113 / 61; Pulse 101; Resp 20; Pulse Ox 94% on R/A; as9 22:30 BP 115 / 60; Pulse 95; Resp 20; Temp 100.9; Pulse Ox 98% on R/A; as9 23:30 BP 112 / 67; Pulse 89; Resp 20; Pulse Ox 98% ; vc1 04/28 00:00 BP 104 / 61; Pulse 74; Resp 20; Pulse Ox 97% ; vc1 00:00 BP 104 / 61; Pulse 87; Resp 20; Temp 99.7; Pulse Ox 94% on R/A; as9 04/27 16:51 Body Mass Index 26.50 (86.18 kg, 180.34 cm) hb 04/27 16:51 Pain Scale: Adult hb MDM: 04/27 16:57 Patient medically screened. 17:08 Data reviewed: vital signs, nurses notes. 17:51 Historians other than the Patient: Spouse/Significant Other: . kb 19:56 Differential diagnosis: uti, abscess, cellulitis, sepsis. Consideration of kb Admission/Observation Escalation of care including admission/observation considered. pt will be transferred back to [facility] . Counseling: I had a detailed discussion with the patient and/or guardian regarding the historical points, exam findings, and any diagnostic results supporting the discharge/admit diagnosis, lab results, radiology results, the need to transfer to another facility. ED course: sepsis reevaluation complete. 22:02 Management of patient was discussed with the following: Dr Church, who is distillation operator for Dr jose Paz, accepts pt for consult. Would like pt transferred to [facility] and admitted to medicine. 23:04 Management of patient was discussed with the following: Dr Thorpe, hospitalist at [facility], accepts pt for transfer. 04/27 17:04 Order name: Blood Culture Adult (2) 04/27 17:04 Order name: CBC with Diff; Complete Time: 20:26 04/27 17:04 Order name: CMP; Complete Time: 18:13 kb 04/27 17:04 Order name: Lactate w/ 2H reflex if indic.; Complete Time: 18:14 kb 04/27 17:04 Order name: Protime (+inr); Complete Time: 18:26 kb 04/27 17:04 Order name: Ptt, Activated; Complete Time: 18:26 kb 04/27 17:04 Order name: Urinalysis w/ reflexes; Complete Time: 18:57 kb 04/27 19:00 Order name: Urine Culture EDMS 04/27 20:24 Order name: CBC Smear Scan; Complete Time: 20:26 EDMS 04/27 20:54 Order name: Lactate Sepsis 2 HR Follow-up; Complete Time: 20:55 EDMS 04/27 18:55 Order name: Hip Left Wo Con; Complete Time: 19:47 EDMS 04/27 17:04 Order name: Accucheck; Complete Time: 17:50 kb 04/27 17:04 Order name: Cardiac monitoring; Complete Time: 17:50 kb 04/27 17:04 Order name: EKG - Nurse/Tech; Complete Time: 17:50 kb 04/27 17:04 Order name: IV Saline Lock - Large Bore; Complete Time: 17:50 kb 04/27 17:04 Order name: Labs collected and sent; Complete Time: 17:50 kb 04/27 17:04 Order name: O2 Per Protocol; Complete Time: 17:49 kb 04/27 17:04 Order name: O2 Sat Monitoring; Complete Time: 17:49 kb 04/27 17:04 Order name: Vital Signs; Complete Time: 17:49 kb 04/27 20:07 Order name: Vital Signs; Complete Time: 20:19 kb 04/27 20:08 Order name: Misc. Order: draw repeat lactate; Complete Time: 20:30 kb Administered Medications: 18:44 Drug: NS 0.9% IV (30 ml/kg) 30 ml/kg IV at bolus once; Sepsis Protocol Route: IV; Rate: bp bolus; Site: right antecubital; 04/28 00:24 Follow up: IV Status: Completed infusion; IV Intake: 2545ml vc1 04/27 18:45 Drug: Cefepime IVPB 1 grams IVPB at 200 ml/hr once over 30 mins; (mix in NS 100 mL) bp Route: IVPB; Rate: 200 ml/hr; Infused Over: 30 mins; Site: right antecubital; 19:45 Follow up: IV Status: Completed infusion; IV Intake: 100ml vc1 20:37 Drug: Ondansetron IVP 4 mg IVP once; over 2 minutes Route: IVP; Site: right antecubital;as9 22:36 Follow up: Response: No adverse reaction; Marked relief of symptoms as9 22:51 Drug: Acetaminophen PO 650 mg PO once Route: PO; as9 04/28 00:24 Follow up: Response: No adverse reaction; Temperature is decreased as9 Disposition: 04/27 17:11 Co-signature as Attending Physician, Amparo Pinto MD I agree with the assessment and cp3 plan of care. Disposition Summary: 04/28/23 20:15 Transfer Ordered Notes: Transfer Location: [facility] kb Reason: Higher level of care kb Condition: Stable kb Problem: new kb Symptoms: are unchanged kb Accepting Physician: Dr Thorpe(04/29/23 01:18) vc1 Diagnosis - Severe sepsis with septic shock kb - UTI/ Urinary tract infection, site not specified kb - Infected seroma with possible abscess s/p left hip replacement kb Discharge Instructions: - Discharge Summary Sheet rs5 Forms: - Medication Reconciliation Form kb - SBAR form rs5 Critical care time excluding procedures: 23:05 Critical care time: Bedside Care: 10 minutes, Consultation: 15 minutes, Family kb Intervention: 10 minutes. Total time: 35 minutes Signatures: Dispatcher [employer] EDCO Mayela Asif, MACHINE MAINTENANCE MECHANIC-C MACHINE MAINTENANCE MECHANIC-Amparo Jaime MD MD cp3 Clarice Francisco, RN RN Manolo Ortiz, RN RN jb4 Mike Metzger, RN RN bp Cinthya Marino RN RN vc1 Alfonso Aguirre, SILVIA RN as9 Corrections: (The following items were deleted from the chart) 18:55 18:45 CT LEFT HIP WO CONTRAST ordered. [facility] 19:58 17:07 Constitutional: This is a well developed, well nourished patient who is awake, kb alert, and in no acute distress. Head/Face: Normocephalic, atraumatic. ENT: Moist Mucous membranes Cardiovascular: Regular rate Respiratory: Respirations even and unlabored. No increased work of breathing. Talking in full sentences Abdomen/GI: Soft, non-tender. No distention, urostomy Skin: Warm, dry with normal turgor. Normal color. MS/ Extremity: Pulses equal, no cyanosis. Neurovascular intact. Full, normal range of motion. Neuro: Awake and alert, GCS 15, oriented to person, place, time, and situation. Moves all extremities. Normal gait. kb 23:04 20:15 Dr jose garcia 04/28 00:04/27 23:04 Management of patient was discussed with the following: Dr White, jose hospitalist at [facility], accepts pt for transfer. kb 04/28 00:04/27 23:04 Dr Christopher garcia 04/28 00: 00:19 Dr Ila garcia vc1
[2023-04-28 20:23] LABS: White Blood Cell Scan OK (OK)
[2023-04-28 20:24] LABS: Blood Morphology Comment NOT SEEN (NOT SEEN); Platelet Estimate ADEQ
[2023-04-29 02:26] VITALS: BP 104/61; TEMP 99.7; O2SAT 94
== END ==
LOC: ER 16:42
DX: N39.0 Urinary tract infection, site not specified (principal); R65.21 Severe sepsis with septic shock; M96.842 Postprocedural seroma of a musculoskeletal structure following a musculoskeletal system procedure; Z96.642 Presence of left artificial hip joint; E11.9 Type 2 diabetes mellitus without complications; I10 Essential (primary) hypertension; Z88.5 Allergy status to narcotic agent
CPT/HCPCS: 87040 ×2; 87088; 85025; 81001; 87086; 36415; 87205 ×4; 85610; 83605 ×2; 85730; 80053; 73700; J2405; J7030; J0692